=== PATIENT | male | born 1950 | race Caucasian/White ===

== ENCOUNTER 2017-05-12 14:46 | Emergency (ER) | payer OTHER, MEDICAID ==
[~2017-05-12] VITALS: Wt 83.5 kg
[~2017-05-12 14:46] MED LIST: ACET500T98; AMLO5TAB4 PO; ASPI-664 PO; BENA20TA65 PO; CARV6.2545 PO; DICL75 PO; GABA100C14 PO; GEMF600T PO; IBUP-40; INSU100V19; METF1000 PO
[2017-05-12] MEDS ORDERED: ACETAMINOPHEN 325 MG TAB PO ONE (16:00)
[2017-05-12 16:29] LABS: ADD UMIC YES; UR ASCORBIC ACID NEGATIVE (NEGATIVE); UR BILIRUBIN (Dip) NEGATIVE (NEGATIVE); UR BLOOD (Dip) NEGATIVE (NEGATIVE); UR CLARITY CLEAR (CLEAR); UR COLOR YELLOW (YELLOW); UR GLUCOSE (Dip) 3+ mg/dL (NEGATIVE); UR KETONES (Dip) NEGATIVE (NEGATIVE); UR LEUKOCYTE ESTERASE (Dip) NEGATIVE Leu/ul (NEGATIVE); UR NITRITE (Dip) NEGATIVE (NEGATIVE); UR RBC 1 /HPF (0-5); UR SPECIFIC GRAVITY (Dip) 1.029 (1.003-1.030); UR TOTAL PROTEIN (Dip) 3+ mg/dl (NEGATIVE); UR UROBILINOGEN (Dip) NEGATIVE (NEGATIVE)
--- NOTE | 2017-05-12 17:24 | RADRPT ---
PROCEDURE: Noncontrast CT Head. CLINICAL INDICATION: Status post fall. Trauma. TECHNIQUE: Noncontrast CT of the head was obtained. The administered radiation dose was CTDI vol = 43.58 mGy, DLP = 720.23 mGy-cm. One or more of the following dose reduction techniques were used: Au tomated exposure control, Adjustment of the mA and/or kV according to patient size, or Use of iterat naresh reconstruction technique. COMPARISON: There are no similar studies submitted for comparison. FINDINGS: There is a right frontal craniectomy with right frontal ventriculostomy catheter with tip within the left frontal horn. There is mild ventriculomegaly suggesting miles central greater than peripheral cerebral volume loss . There is extensive bilateral superior temporal subcortical gliosis. There is no loss of amor-white differentiation to suggest acute territorial infarction. There is no acute intracranial hemorrhage. There is no mass effect. No midline shift is identified. The orbits are within normal limits. The paranasal sinuses are well aerated. No destructive osseous lesion is identified. Is a left frontal analisa hole. IMPRESSION: 1. No acute intracranial hemorrhage. 2. Right frontal craniectomy with right frontal ventriculostomy catheter. 3. Mild ventriculomegaly suggesting central greater than peripheral cerebral volume loss. Comparison with prior examination may be helpful to evaluate ventricle size. 4. Extensive bilateral frontal subcortical hypoattenuation which may be related to gliosis versus o ther etiologies. Further findings as detailed above. RPTAT: PP .Slick Da Silva MD, Date Time Electronically viewed and signed by .Slick Da Silva MD, on 05/12/2017 17:23 .F/
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
--- NOTE | 2017-05-12 17:30 | RADRPT ---
PROCEDURE: XR bilateral knees. CLINICAL INDICATION: 66 years of age, male.bilateral knee pain. TECHNIQUE: Six views of the bilateral knees. COMPARISON: None available FINDINGS: RIGHT KNEE: Negative for evidence of acute fracture. Normal alignment. Mild tricompartment osteoarthritis with small osteophytes. Small amount of knee joint fluid. Negative for significant soft tissue swellin g. LEFT KNEE: Negative for evidence of acute fracture. Normal alignment. Mild tricompartment osteoarthritis with small osteophytes. Small amount of knee joint fluid . Negative for significant soft tissue swellin g. IMPRESSION: Negative for evidence of acute fracture or dislocation of the bilateral knees. Mild bilateral tricompartment osteoarthritis. RPTAT: HCTS Physician Patricia Date Time Electronically viewed and signed by Connor Diana Physician on 05/12/2017 17:30 /
[2017-05-12] MEDS ORDERED: ACET1TAB40 PO (18:11)
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
[2017-05-12 18:30] VITALS: BP 168/83; PULSE 78; RESP 20; TEMP 98.1
== END 2017-05-12 18:30 | disposition home or self-care (01) ==
LOC: FTE 14:46
DX: S80.01XA Contusion of right knee, initial encounter (principal); S20.219A Contusion of unspecified front wall of thorax, initial encounter; S80.02XA Contusion of left knee, initial encounter; I10 Essential (primary) hypertension; E11.9 Type 2 diabetes mellitus without complications; W01.0XXA Fall on same level from slipping, tripping and stumbling without subsequent striking against object, initial encounter; Y92.9 Unspecified place or not applicable; Z79.4 Long term (current) use of insulin; Z79.84 Long term (current) use of oral hypoglycemic drugs; Z79.82 Long term (current) use of aspirin
CPT/HCPCS: 70450; 71010; 81001; 82962; 93005

== ENCOUNTER 2017-05-17 00:49 | Inpatient (IN) | payer OTHER, MEDICAID ==
[~2017-05-17] VITALS: Ht 172.7 cm; Wt 81.5 kg
[~2017-05-17 00:49] MED LIST changes: +ACET1TAB40 PO
[2017-05-17] MEDS ORDERED: SODIUM CHLORIDE 0.9% 1L BAG IV* STA (01:08)
[2017-05-17] MEDS ORDERED: CEFEPIME 2GM/50 ML (PMX) 50 ML IVPB STA (01:08)
[2017-05-17] MEDS ORDERED: ACETAMINOPHEN 650 MG SUPP PR STA (01:08)
[2017-05-17] MEDS ORDERED: VANCOMYCIN 1 GM (PMX) 250 ML IVPB ONE (01:30)
[2017-05-17 01:43] LABS: BASOPHILS % 0.2 % (0.0-2.0); EOSINOPHILS % 0.1 % (0.0-7.0); HEMATOCRIT 34.3 % (42.0-52.0); HEMOGLOBIN 11.6 g/dl (14.0-18.0); LYMPHOCYTES % 19.4 % (15.0-51.0); MEAN CORPUSCULAR HEMOGLOBIN 29.7 pg (29.0-33.0); MEAN CORPUSCULAR HGB CONC 33.8 g/dl (32.0-37.0); MEAN CORPUSCULAR VOLUME 87.9 fl (82.0-101.0); MEAN PLATELET VOLUME 9.9 fl (7.4-10.4); MONOCYTE # 0.6 10^3/ul (0.3-0.9); MONOCYTES % 5.6 % (0.0-11.0); NEUTROPHILS % 74.4 % (39.0-77.0); PLATELET COUNT 319 10^3/UL (140-415); RED CELL DISTRIBUTION WIDTH 12.7 % (11.5-14.5); WHITE BLOOD COUNT 10.1 10^3/ul (4.8-10.8)
[2017-05-17 01:59] LABS: INR 0.93; PROTIME 12.5 Sec (12.2-14.2)
[2017-05-17 02:00] LABS: PARTIAL THROMBOPLASTIN TIME 26.4 Sec (25.0-35.0)
--- NOTE | 2017-05-17 02:02 | RADRPT ---
PROCEDURE: CT BRAIN WITHOUT CONTRAST CLINICAL INDICATION: 66-year-old male with change in mental status and sepsis. TECHNIQUE: The study was performed utilizing [employer] VCT 64-slice CT scanner. Direct axial sections were obtained from the foramen magnum to the vertex without the use of intravenous contrast material. Sagittal and coronal reformations were obtained. One or more of the following dose reduc tion techniques were utilized: automated exposure control, adjustment of the mA and/or kV according to patient's size or use of iterative reconstruction technique. The images were viewed on a PACS w orkstation. CTD/vol = 45.0 mGy; Total Exam DLP = 720.2 mGy-cm. COMPARISON: CT brain May 12, 2017. FINDINGS: There has been a right frontal craniectomy. There is a small left frontal parasagittal analisa hole. T here is a right transfrontal ventriculoperitoneal shunt with the catheter traversing the frontal hor ns and the tip in the left frontal horn of the lateral ventricle. There is moderate prominence of th e sulci and cisternal spaces consistent with diffuse volume loss and compensatory ventricular enlarg ement. The ventricular configuration however is without significant interval change. There is bifr ontal encephalomalacia again visualized. There are is periventricular decreased density suggestive of microangiopathic ischemic changes but without significant interval change. Vascular calcificatio ns are seen within the intracranial carotid arteries bilaterally. There is no evidence for acute in tra or extra-axial blood. There is a deformity within the right nasal bone from a prior fracture. T here is mild mucosal thickening within the ethmoid air cells bilaterally. No air-fluid levels are noted. The mastoid air cells are without significant soft tissue. IMPRESSION: 1. The intracranial contents are without significant interval change compared to the patient's prio r CT scan from May 12, 2017. 2. Right frontal craniectomy with left frontal parasagittal analisa hole. 3. Right transfrontal ventriculoperitoneal shunt with the catheter traversing the frontal horns. 4. Moderate diffuse volume loss. 5. Bifrontal encephalomalacia presumably from prior trauma. 6. Microangiopathic ischemic changes. 7. Vascular calcifications. 8. Mild mucosal thickening ethmoid air cells. .Moises Conner MD, MD Date Time Electronically viewed and signed by .Moises Conner MD, on 05/17/2017 02:01 .M/
[2017-05-17 02:04] LABS: ALANINE AMINOTRANSFERASE 32 IU/L (13-69); ALBUMIN 3.3 g/dl (3.3-4.9); ALBUMIN/GLOBULIN RATIO 0.82; ALKALINE PHOSPHATASE 135 IU/L (42-121); ANION GAP 16 (8-16); ASPARTATE AMINO TRANSFERASE 18 IU/L (15-46); BILIRUBIN,INDIRECT 0.6 mg/dl (0-1.1); BILIRUBIN,TOTAL 0.6 mg/dl (0.2-1.3); BLOOD UREA NITROGEN 17 mg/dl (7-20); CALCIUM 8.9 mg/dl (8.4-10.2); CARBON DIOXIDE 21 mmol/L (21-31); CHLORIDE 104 mmol/L (97-110); CREATININE 1.31 mg/dl (0.61-1.24); GLUCOSE 377 mg/dl (70-220); POTASSIUM 4.4 mmol/L (3.5-5.1); SODIUM 137 mmol/L (135-144); TOTAL PROTEIN 7.3 g/dl (6.1-8.1)
--- NOTE | 2017-05-17 02:07 | RADRPT ---
PROCEDURE: CHEST - 1 VIEW CLINICAL INDICATION: 66-year-old male with shortness of breath and sepsis. TECHNIQUE: A single frontal AP semi-erect portable view of the chest was performed. The images we re reviewed on a PACS workstation. COMPARISON: Chest x-ray May 12, 2017. FINDINGS: Ventriculoperitoneal shunt tubing is seen along the right neck crossing the midline and extending al kim the left side of the chest with the tip difficult to visualize but appears to be at the level of the diaphragm. The cardiomediastinal silhouette it is mildly enlarged but without significant inter amaury change. The thoracic aorta is mildly calcified and ectatic. There are small speckled metallic foreign bodies within the left upper lung zone most suggestive of shrapnel. There are an anastomoti c caro within the left upper lung zone from prior lung resection. There is volume loss within th e left chest. There is increasing left lower lung zone atelectasis. A superimposed infiltrate nate ot be excluded. There is no evidence for congestive heart failure. There is no evidence for pneumot horax. IMPRESSION: 1. Ventriculoperitoneal shunt tubing with the tip of the tubing difficult to visualize but appears to be along the level of the diaphragm. This however is without significant interval change. 2. Shrapnel within the left upper lung zone with prior lung resection. 3. Increasing left lung volume loss with left lower lung zone atelectasis. A superimposed infiltra te cannot be excluded. .Moises Conner MD, Date Time Electronically viewed and signed by .Moises Conner MD, MD on 05/17/2017 02:06 .Brett/
[2017-05-17 02:21] LABS: TROPONIN-I < 0.012 ng/ml (0.00-0.12)
[2017-05-17] MEDS ORDERED: LABETALOL HCL 20MG INJ IV ONE (03:00)
[2017-05-17 04:27] VITALS: TEMP 100.7
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
[2017-05-17] MEDS ORDERED: ONDANSETRON 4 MG INJ IV PRN (04:30)
[2017-05-17] MEDS ORDERED: ACETAMINOPHEN 325 MG TAB PO PRN (04:30)
[2017-05-17] MEDS ORDERED: SOD CHLORIDE 0.9% 1,000 ML IV SCH (04:44)
[2017-05-17] MEDS ORDERED: INSULIN ASPART [NOVOLOG] 3 ML PEN SC STA (04:54)
[2017-05-17] MEDS ORDERED: DOCUSATE SODIUM 100 MG CAP PO PRN (05:00)
[2017-05-17] MEDS ORDERED: ONDANSETRON 4 MG TAB PO PRN (05:00)
[2017-05-17] MEDS ORDERED: NACL 0.9% 3 ML SYG IV SCH (05:00)
[2017-05-17 05:21] LABS: ADD UMIC YES; UR ASCORBIC ACID NEGATIVE (NEGATIVE); UR BILIRUBIN (Dip) NEGATIVE (NEGATIVE); UR BLOOD (Dip) NEGATIVE (NEGATIVE); UR CLARITY CLEAR (CLEAR); UR COLOR YELLOW (YELLOW); UR GLUCOSE (Dip) 3+ mg/dL (NEGATIVE); UR KETONES (Dip) TRACE mg/dL (NEGATIVE); UR LEUKOCYTE ESTERASE (Dip) NEGATIVE Leu/ul (NEGATIVE); UR NITRITE (Dip) NEGATIVE (NEGATIVE); UR RBC 1 /HPF (0-5); UR SPECIFIC GRAVITY (Dip) 1.018 (1.003-1.030); UR TOTAL PROTEIN (Dip) 3+ mg/dl (NEGATIVE); UR UROBILINOGEN (Dip) NEGATIVE (NEGATIVE)
[2017-05-17 05:29] VITALS: BP 181/86; RESP 19
[2017-05-17] MEDS ORDERED: PIPER-TAZO 3.375 GM IV (PMX) 100 ML IVPB SCH (06:28)
[2017-05-17] MEDS ORDERED: VANCOMYCIN IV PER PHARMACY XX SCH ×2 (06:30→15:00)
[2017-05-17 06:57] VITALS: Ht 172.7 cm; Wt 81.5 kg
[2017-05-17 07:22] VITALS: BP 189/88; RESP 18
[2017-05-17] MEDS ORDERED: INSULIN GLARGINE [LANtus] 3 ML PEN SC SCH ×2 (07:30→21:00)
[2017-05-17] MEDS: hydrALAzine 20 MG INJ IV PRN ×2 (07:35→12:18)
[2017-05-17] MEDS: BENAZEPRIL 20 MG TAB PO SCH ×2 (08:16→21:04)
[2017-05-17] MEDS: GEMFIBROZIL 600 MG TAB PO SCH ×2 (08:16→21:03)
[2017-05-17] MEDS: GABAPENTIN 400 MG CAP PO SCH ×3 (08:16→21:04)
[2017-05-17] MEDS: ASPIRIN (EC) 81 MG TAB PO SCH (08:16)
[2017-05-17] MEDS: FAMOTIDINE 20 MG TAB PO SCH ×2 (08:17→21:03)
[2017-05-17] MEDS ORDERED: AMLODIPINE 5 MG TAB PO SCH (09:00)
[2017-05-17] MEDS ORDERED: ENOXAPARIN 30 MG/0.3 ML SYG SC SCH (09:00)
[2017-05-17 09:59] LABS: CREATINE KINASE 50 IU/L (23-200)
[2017-05-17 10:28] LABS: TROPONIN-I < 0.012 ng/ml (0.00-0.12)
[2017-05-17 11:08] LABS: CK-MB 0.64 ng/ml (0.0-2.4)
[2017-05-17] MEDS: TAMSULOSIN (SR) 0.4 MG CAP PO SCH ×2 (12:18→21:03)
[2017-05-17 13:53] VITALS: BP 168/79; RESP 18
[2017-05-17 14:37] LABS: CREATINE KINASE 88 IU/L (23-200)
[2017-05-17 14:52] LABS: CK-MB 0.97 ng/ml (0.0-2.4); TROPONIN-I < 0.012 ng/ml (0.00-0.12)
[2017-05-17] MEDS ORDERED: BARIUM SULF 2% 450 ML BTL (BERRY SMOOTHIE) PO ONE (15:00)
[2017-05-17] MEDS ORDERED: ACETAMINOPHEN 650 MG SUPP PR PRN (15:30)
[2017-05-17] MEDS: ACETAMINOPHEN 325 MG TAB PO PRN ×2 (16:00→22:25)
[2017-05-17] MEDS ORDERED: GLUCOSE GEL 15 GRAM TUBE PO PRN ×2 (16:30)
[2017-05-17] MEDS ORDERED: DEXTROSE 50% 50 ML SYRINGE IV PRN ×2 (16:30)
[2017-05-17] MEDS ORDERED: GLUCAGON 1 MG INJ IM PRN (16:30)
[2017-05-17] MEDS ORDERED: GLUCOSE GEL 15 GRAM TUBE BUCCAL PRN (16:30)
[2017-05-17] MEDS ORDERED: VANCOMYCIN 1.5 GM in SOD CHLORIDE 0.9% 250 ML IVPB SCH (17:00)
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
[2017-05-17] MEDS: CEFTRIAXONE 2 GM/50 ML (PMX) 50 ML IVPB SCH (17:23)
[2017-05-17] MEDS: SOD CHLORIDE 0.9% 1,000 ML IV SCH (17:28)
[2017-05-17] MEDS: INSULIN ASPART [NOVOLOG] 3 ML PEN SC SCH ×3 (17:40→21:00)
[2017-05-17 20:36] VITALS: BP 140/80; RESP 20
[2017-05-17] MEDS: INSULIN GLARGINE [LANtus] 3 ML PEN SC SCH (21:00)
[2017-05-17] MEDS: AMLODIPINE 5 MG TAB PO SCH (22:26)
[2017-05-17 22:31] VITALS: BP 128/64
[2017-05-18] VITALS (8 sets, daily range): BP systolic 114–163; BP diastolic 60–76; PULSE 74–82; RESP 18–20
[2017-05-18] MEDS: ACCU-CHEK XX SCH (02:00)
[2017-05-18] MEDS: SOD CHLORIDE 0.9% 1,000 ML IV SCH ×2 (02:49→11:30)
[2017-05-18 05:53] LABS: BASOPHIL # 0.1 10^3/ul (0.0-0.1); BASOPHILS % 0.4 % (0.0-2.0); EOSINOPHILS % 0.3 % (0.0-7.0); HEMATOCRIT 30.3 % (42.0-52.0); HEMOGLOBIN 10.2 g/dl (14.0-18.0); LYMPHOCYTES # 2.4 10^3/ul (0.8-2.9); LYMPHOCYTES % 21.7 % (15.0-51.0); MEAN CORPUSCULAR HEMOGLOBIN 30.1 pg (29.0-33.0); MEAN CORPUSCULAR HGB CONC 33.7 g/dl (32.0-37.0); MEAN CORPUSCULAR VOLUME 89.4 fl (82.0-101.0); MEAN PLATELET VOLUME 9.8 fl (7.4-10.4); MONOCYTES % 9.1 % (0.0-11.0); NEUTROPHILS % 68.1 % (39.0-77.0); PLATELET COUNT 296 10^3/UL (140-415); RED BLOOD COUNT 3.39 10^6/ul (4.70-6.10); RED CELL DISTRIBUTION WIDTH 12.8 % (11.5-14.5); WHITE BLOOD COUNT 11.2 10^3/ul (4.8-10.8)
[2017-05-18 06:30] LABS: CREATININE 1.15 mg/dl (0.61-1.24); MAGNESIUM 1.6 mg/dl (1.7-2.5); POTASSIUM 4.2 mmol/L (3.5-5.1)
[2017-05-18] MEDS: ACETAMINOPHEN 325 MG TAB PO PRN ×3 (07:45→20:36)
[2017-05-18] MEDS: INSULIN ASPART [NOVOLOG] 3 ML PEN SC SCH ×7 (08:01→21:00)
[2017-05-18] MEDS: BENAZEPRIL 20 MG TAB PO SCH ×2 (09:29→20:31)
[2017-05-18] MEDS: GABAPENTIN 400 MG CAP PO SCH ×3 (09:30→20:31)
[2017-05-18] MEDS: ASPIRIN (EC) 81 MG TAB PO SCH (09:30)
[2017-05-18] MEDS: GEMFIBROZIL 600 MG TAB PO SCH ×2 (09:30→20:30)
[2017-05-18] MEDS: FAMOTIDINE 20 MG TAB PO SCH ×2 (09:30→20:31)
[2017-05-18] MEDS: TAMSULOSIN (SR) 0.4 MG CAP PO SCH ×2 (09:30→20:30)
[2017-05-18] MEDS: AMLODIPINE 5 MG TAB PO SCH ×2 (10:51→20:31)
[2017-05-18] MEDS ORDERED: VANCOMYCIN 750 MG in SOD CHLORIDE 0.9% 150 ML IVPB SCH (11:30)
[2017-05-18] MEDS ORDERED: MAGNESIUM SULFATE 2 GM/50 ML 50 ML IVPB ONE (12:00)
--- NOTE | 2017-05-18 13:17 | PN ---
Date/Time of Note Date/Time of Note DATE: 05/18/17 TIME: 12:47 Assessment/Plan VTE Prophylaxis VTE Prophylaxis Intervention: SCD's Lines/Catheters IV [facility]ter Type (from [facility]): Peripheral IV Urinary Cath still in place: No Assessment/Plan Assessment/Plan 66-year-old male with: 1. Fevers, chills, slightly elevated lactic acid last night. Blood cultures which have been repeated again this afternoon given the episode of fever still pending. Urine culture pending. UA was negative mostly. Lactic acid trending down. Repeat UA and urine culture pending Patient on Road spectrum antibiotics vancomycin and Rocephin CAT scan of the abdomen and pelvis done overnight, FLOOR FRAMER shunt in the right upper quadrant and adequate position, no other acute findings, patient was found to have a distended stomach at the time of the CAT scan but relieved now clinically. I have discussed the case with Dr. Rubén Knox from neurosurgery, he doubts the FLOOR FRAMER shunt is infected, he is recommending to complete infectious workup and we may need to do a lumbar puncture. Follow-up on cultures. 2. Episode of urinary retention, seems to be chronic at this point, patient on Flomax as an outpatient. Resolved as of this morning, patient on twice daily Flomax. Follow up repeat UA and urine culture 3. Remote head injury with obstructive hydrocephalus, status post FLOOR FRAMER shunt years ago, family reports that the patient had issues with the FLOOR FRAMER shunt being dislodged in the abdomen in the past. He did have a recent fall with trauma to the abdomen, CAT scan of the abdomen and pelvis showing adequate position of the FLOOR FRAMER shunt tip in the right upper quadrant. Otherwise CAT scan of the head is stable. Per Dr. Knox, patient to get [facility], but unlikely having FLOOR FRAMER shunt dysfunction currently. He is not also advising to tap the FLOOR FRAMER shunt at this point. MRI cervical/thoracic/lumbar spine pending 4. Diabetes mellitus, uncontrolled, hemoglobin A1c around 11. Patient is on insulin regimen while inpatient. Diabetic education prior to discharge. Diabetic diet, sliding scale insulin also on board. 5. Hypertension: Continue home medications, hydralazine as needed. Prophylaxis: SCDs for DVT prophylaxis, Pepcid for GI prophylaxis. Disposition: Follow-up on cultures, antibiotic treatment, MRI spine pending, follow-up further neurosurgical commendation once MRIs done. Subjective 24 Hr Interval Summary Free Text/Dictation Mr. Hood does look better this morning, CAT scan of the abdomen and pelvis overnight did show a distended stomach but this morning he is symptomatically much improved, no nausea no vomiting. Tolerating clear liquid diet. Appreciate neurosurgery evaluation and recommendation, MRI cervical/thoracic/ lumbar spine pending Still febrile up to 103. Cultures no growth to date On IV broad-spectrum antibiotics. Exam/Review of Systems Vital Signs Vitals Vital Signs Date Time Temp Pulse Resp B/P Pulse Ox O2 Delivery O2 Flow Rate FiO2 05/18/17 12:35 99.9 05/18/17 10:44 74 156/72 05/18/17 10:39 18 94 05/17/17 04:27 Room Air Intake and Output 05/17/17 05/17/17 05/18/17 15:00 23:00 07:00 Intake Total 500 ml 1740 ml 1450 ml Output Total 600 ml Balance 500 ml 1740 ml 850 ml Exam Constitutional: alert, oriented (x2), well developed Respiratory: clear to auscultation, normal air movement Cardiovascular: nl pulses, regular rate and rhythm Gastrointestinal: non-tender, soft Musculoskeletal: nl extremities to inspection Extremities: normal pulses, other (No edema, clubbing or cyanosis) Neurological: SENIOR SCIENTIST II-XII intact, confused, lethargic, nl speech, other ( Generalized weakness) Results Result Diagram: 05/18/17 0506 05/18/17 0506 Results 24 hrs Laboratory Tests Test 05/17/17 13:01 05/17/17 16:10 05/17/17 17:31 05/17/17 20:56 Lactic Acid Level 2.1 H Creatine Kinase 88 Creatine Kinase Index 1.1 Creatinine Kinase MB (Mass) 0.97 Troponin I < 0.012 Hemoglobin A1c 11.8 H Bedside Glucose 247 H 114 Test 05/18/17 02:55 05/18/17 05:06 05/18/17 07:51 05/18/17 12:27 Bedside Glucose 108 153 135 White Blood Count 11.2 H Red Blood Count 3.39 L Hemoglobin 10.2 L Hematocrit 30.3 L Mean Corpuscular Volume 89.4 Mean Corpuscular Hemoglobin 30.1 Mean Corpuscular Hemoglobin Concent 33.7 Red Cell Distribution Width 12.8 Platelet Count 296 Mean Platelet Volume 9.8 Neutrophils % 68.1 Lymphocytes % 21.7 Monocytes % 9.1 Eosinophils % 0.3 Basophils % 0.4 Nucleated Red Blood Cells % 0.0 Neutrophils # (Manual) 7.6 H Lymphocytes # 2.4 Monocytes # 1.0 H Eosinophils # 0.0 Basophils # 0.1 Nucleated Red Blood Cells # 0.0 Sodium Level 137 Potassium Level 4.2 Chloride Level 104 Carbon Dioxide Level 21 Anion Gap 16 Blood Urea Nitrogen 14 Creatinine 1.15 Glucose Level 125 # Calcium Level 8.0 L Phosphorus Level 3.9 Magnesium Level 1.6 L Thyroid Stimulating Hormone (TSH) 0.815 Medications Medications Current Medications Ondansetron HCl (Zofran Tab) 4 mg Q6H PRN PO NAUSEA AND/OR VOMITING; Start at 05:00 Acetaminophen (Tylenol Tab) 650 mg Q6H PRN PO PAIN LEVEL 1-3 OR FEVER Last administered on 05/18/17 07:45; Admin Dose 650 MG; Start 05/17/17 at 05:00 Acetaminophen/ Hydrocodone Bitart ([place] (5/325)) 1 tab Q6H PRN PO MODERATE PAIN LEVEL 4-6; Start 05/17/17 at 05:00 Docusate Sodium (Colace) 100 mg Q12H PRN PO CONSTIPATION; Start 05/17/17 at 05: 00 Famotidine (Pepcid) 20 mg Q12 PO Last administered on 05/18/17 09:30; Admin Dose 20 MG; Start 05/17/17 at 09:00 Aspirin (Halfprin) 81 mg DAILY PO Last administered on 05/18/17 09:30; Admin Dose 81 MG; Start 05/17/17 at 09:00 Benazepril HCl (Lotensin) 20 mg BID PO Last administered on 05/18/17 09:29; Admin Dose 20 MG; Start 05/17/17 at 09:00 Carvedilol (Coreg) 6.25 mg BID PO Last administered on 05/18/17 09:31; Admin Dose 6.25 MG; Start 05/17/17 at 09:00 Gabapentin (Neurontin) 800 mg TID PO Last administered on 05/18/17 12:29; Admin Dose 800 MG; Start 05/17/17 at 09:00 Gemfibrozil (Lopid) 600 mg BID PO Last administered on 05/18/17 09:30; Admin Dose 600 MG; Start 05/17/17 at 09:00 Hydralazine HCl (Apresoline) 10 mg Q4H PRN IV SBP > 160 Last administered on 12:18; Admin Dose 10 MG; Start 05/17/17 at 06:30 Tamsulosin HCl (Flomax) 0.4 mg BID PO Last administered on 05/18/17 09:30; Admin Dose 0.4 MG; Start 05/17/17 at 12:00 Insulin Glargine 20 unit 20 unit QHS SC ; Start 05/17/17 at 21:00 Ceftriaxone Sodium (Rocephin) 50 ml @ 100 mls/hr Q24H IVPB Last administered on 05/17/17 17:23; Admin Dose 100 MLS/HR; Start 05/17/17 at 15:00 Diagnostic Test (Pha) 1 ea 1 ea 02 XX ; Start 05/18/17 at 02:00 Sodium Chloride (NS) 1,000 ml @ 100 mls/hr Q10H IV Last administered on 02:49; Admin Dose 100 MLS/HR; Start 05/17/17 at 15:30 Acetaminophen (Tylenol Supp) 650 mg Q6 PRN [place] PAIN OR TEMP ABOVE 38C; Start at 15:30 Miscellaneous Information 1 ea NOTE XX ; Start 05/17/17 at 16:30 Glucose (Glutose) 15 gm Q15M PRN PO DECREASED GLUCOSE; Start 05/17/17 at 16:30 Glucose (Glutose) 22.5 gm Q15M PRN PO DECREASED GLUCOSE; Start 05/17/17 at 16: 30 Dextrose (D50w Syringe) 25 ml Q15M PRN IV DECREASED GLUCOSE; Start 05/17/17 at 16:30 Dextrose (D50w Syringe) 50 ml Q15M PRN IV DECREASED GLUCOSE; Start 05/17/17 at 16:30 Glucagon (Glucagen) 1 mg Q15M PRN IM DECREASED GLUCOSE; Start 05/17/17 at 16:30 Glucose (Glutose) 15 gm Q15M PRN BUCCAL DECREASED GLUCOSE; Start 05/17/17 at 16 :30 Amlodipine Besylate 5 mg 5 mg BID PO Last administered on 05/18/17 10:51; Admin Dose 5 MG; Start 05/17/17 at 21:00 Magnesium Sulfate 50 ml @ 25 mls/hr ONCE ONCE IVPB Last administered on t 11:35; Admin Dose 25 MLS/HR; Start 05/18/17 at 12:00; Stop 05/18/17 at 13: 59 Vancomycin HCl/ Sodium Chloride (Vancocin/NS) 150 ml @ 75 mls/hr Q12H IVPB ; Start 05/18/17 at 11:30 AUGUST ADAN May 18, 2017 12:57
--- NOTE | 2017-05-18 13:18 | RADRPT ---
PROCEDURE: CT Abdomen and Pelvis without contrast. CLINICAL INDICATION: Abdominal pelvic pain. Nausea and vomiting. TECHNIQUE: CT scan of the abdomen and pelvis without contrast was performed on a multidetector hig h-resolution CT scanner. The patient was scanned without intravenous contrast. Coronal and sagittal reformatted images were obtained from the axial source images. Images were reviewed on a high-resol [email or web address] PACS workstation. The total exam CTDI equals 13.82 mGy and the total exam DLP equals 961.11 mG y-cm. One or more of the following dose reduction techniques were used: - Automated exposure control. - Adjustment of the mA and/or kV according to patient size. - Use of iterative reconstruction technique. COMPARISON: Chest x-ray 05/17/2017 FINDINGS: CT abdomen: The lung bases are remarkable for scarring and atelectasis in the posteromedial juxtapleural margins of the lungs bilaterally. The heart size is normal, without pericardial thickening or effusion. V P shunt is seen traversing along the midline anterior chest wall extending down into the right later al mid abdomen. The liver is normal in size and density without focal mass or intrahepatic biliary dilatation. The spleen is normal in size and homogeneous in density. Punctate calcifications are seen within the sp kermit, typical of old granulomatous disease. The stomach is markedly distended and filled with fluid and ingested material. Partial gastric outlet obstruction is not excluded. The pancreas as visual ized is normal. The gallbladder is remarkable for small calcified gallstones; the biliary tree is u nremarkable and there is no evidence for biliary dilatation. The adrenal glands are symmetric and n ormal. The kidneys are symmetrically unremarkable as well. No renal calculus or obstructive uropat hy or mass lesion is seen. Mild perinephric stranding and edema is identified bilaterally, nonspecif ic and presumably benign and senescent in nature. The aorta is of normal caliber. Aortic vascular calcifications are present. There is no retroperit curiel lymphadenopathy. The mel hepatis region is clear. The bowel and mesentery, as visualized, are equally unremarkable. CT pelvis: The small bowel loops situated within the pelvis are unremarkable. The appendix is visualized and is normal. The bladder is distended, but otherwise grossly unremarkable The pelvic organs are remarkab le for abnormal enlargement of the prostate gland which is impressing upon the base of the bladder. The pelvic sidewalls and inguinal regions are clear. Small fat-containing right inguinal hernia is seen. No bowel herniation is identified. The sigmoid colon and rectum are unremarkable. No mass or adenopathy is seen. No free fluid is present. No acute inflammation is identified at this time. Benign phleboliths are seen within the lower pelvis. The surrounding osseous structures are remarkable for advanced severe multilevel degenerative enthes opathy of the spine. No osteolytic or osteoblastic lesion is detected. Partial wedge compression of the L1 vertebral body is seen, chronic and remote in age. Severe discogenic disease and disk space narrowing at the L5-S1 level is identified. IMPRESSION: 1. No evidence for bowel distension or bowel obstruction. 2. Benign senescent perinephric stranding and edema. 3. Scattered diffuse benign chronic senescent changes. 4. KARDEX CLERK shunt in place, in good location. 5. Enlarged prostate gland. Correlate with PSA level. 6. Cholelithiasis, without evidence for acute cholecystitis. 7. No focal acute inflammatory process is present. RPTAT: HMJB .Donald Cole MD, MD Date Time Electronically viewed and signed by .Donald Cole MD, on 05/18/2017 13:18 .B/
[2017-05-18] MEDS: hydrALAzine 20 MG INJ IV PRN (13:34)
[2017-05-18] MEDS: VANCOMYCIN 750 MG in SOD CHLORIDE 0.9% 150 ML IVPB SCH (13:45)
[2017-05-18] MEDS: CEFTRIAXONE 2 GM/50 ML (PMX) 50 ML IVPB SCH (16:47)
[2017-05-18 17:12] LABS: ADD UMIC YES; UR ASCORBIC ACID NEGATIVE (NEGATIVE); UR BILIRUBIN (Dip) NEGATIVE (NEGATIVE); UR BLOOD (Dip) NEGATIVE (NEGATIVE); UR CLARITY CLEAR (CLEAR); UR COLOR YELLOW (YELLOW); UR GLUCOSE (Dip) 2+ mg/dL (NEGATIVE); UR KETONES (Dip) NEGATIVE (NEGATIVE); UR LEUKOCYTE ESTERASE (Dip) NEGATIVE Leu/ul (NEGATIVE); UR NITRITE (Dip) NEGATIVE (NEGATIVE); UR RBC 1 /HPF (0-5); UR TOTAL PROTEIN (Dip) 3+ mg/dl (NEGATIVE); UR UROBILINOGEN (Dip) NEGATIVE (NEGATIVE)
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
[2017-05-18] MEDS: INSULIN GLARGINE [LANtus] 3 ML PEN SC SCH (22:39)
[2017-05-19] MEDS: SOD CHLORIDE 0.9% 1,000 ML IV SCH ×3 (01:00→16:46)
[2017-05-19] MEDS: VANCOMYCIN 750 MG in SOD CHLORIDE 0.9% 150 ML IVPB SCH ×2 (01:46→14:48)
[2017-05-19] MEDS: ACCU-CHEK XX SCH (01:56)
[2017-05-19 02:01] VITALS: BP 134/72; RESP 20
[2017-05-19 06:35] LABS: BASOPHIL # 0.1 10^3/ul (0.0-0.1); BASOPHILS % 0.6 % (0.0-2.0); EOSINOPHILS % 0.4 % (0.0-7.0); HEMATOCRIT 30.1 % (42.0-52.0); HEMOGLOBIN 10.4 g/dl (14.0-18.0); LYMPHOCYTES # 2.1 10^3/ul (0.8-2.9); LYMPHOCYTES % 19.1 % (15.0-51.0); MEAN CORPUSCULAR HEMOGLOBIN 30.1 pg (29.0-33.0); MEAN CORPUSCULAR HGB CONC 34.6 g/dl (32.0-37.0); MEAN PLATELET VOLUME 9.9 fl (7.4-10.4); MONOCYTE # 0.9 10^3/ul (0.3-0.9); MONOCYTES % 7.9 % (0.0-11.0); NEUTROPHILS % 71.6 % (39.0-77.0); PLATELET COUNT 307 10^3/UL (140-415); RED BLOOD COUNT 3.46 10^6/ul (4.70-6.10); RED CELL DISTRIBUTION WIDTH 12.2 % (11.5-14.5); WHITE BLOOD COUNT 10.8 10^3/ul (4.8-10.8)
[2017-05-19 07:03] LABS: MAGNESIUM 1.9 mg/dl (1.7-2.5); PHOSPHORUS 3.7 mg/dl (2.5-4.9)
[2017-05-19 07:13] LABS: ALBUMIN/GLOBULIN RATIO 0.76
[2017-05-19 07:41] VITALS: BP 159/74; RESP 18
[2017-05-19 07:44] LABS: ALBUMIN 2.6 g/dl (3.3-4.9); BILIRUBIN,INDIRECT 0.5 mg/dl (0-1.1); BILIRUBIN,TOTAL 0.5 mg/dl (0.2-1.3); CREATININE 0.95 mg/dl (0.61-1.24); POTASSIUM 3.8 mmol/L (3.5-5.1)
[2017-05-19] MEDS: INSULIN ASPART [NOVOLOG] 3 ML PEN SC SCH ×7 (08:15→20:37)
[2017-05-19] MEDS: ASPIRIN (EC) 81 MG TAB PO SCH (08:17)
[2017-05-19] MEDS: GABAPENTIN 400 MG CAP PO SCH ×3 (08:17→20:30)
[2017-05-19] MEDS: TAMSULOSIN (SR) 0.4 MG CAP PO SCH ×2 (08:17→20:30)
[2017-05-19] MEDS: GEMFIBROZIL 600 MG TAB PO SCH ×2 (08:17→20:31)
[2017-05-19] MEDS: FAMOTIDINE 20 MG TAB PO SCH ×2 (08:18→20:31)
[2017-05-19] MEDS: AMLODIPINE 5 MG TAB PO SCH ×2 (08:18→20:32)
[2017-05-19] MEDS: BENAZEPRIL 20 MG TAB PO SCH ×2 (08:18→20:31)
--- NOTE | 2017-05-19 11:39 | RADRPT ---
PROCEDURE: XR Skull. CLINICAL INDICATION: Trauma. Headache. TECHNIQUE: 2 views. Frontal and lateral. COMPARISON: No prior studies available for comparison. FINDINGS: A SHOP COOPER shunt catheter is noted entering via the right superior frontal region with a metallic valve ov erlying the right parietal region. The shunt catheter appears intact to the upper neck. The skull is otherwise intact with no fracture or lytic lesion. The visualized portions of the orbits and paranasal sinuses are normal. IMPRESSION: 1. SHOP COOPER shunt catheter noted as described above. 2. No other abnormality. RPTAT: QQ .Jose Hernandez MD, MD Date Time Electronically viewed and signed by .Jose Hernandez MD, MD on 05/19/2017 11:39 .R/
[2017-05-19 13:31] VITALS: BP 138/71; RESP 18
[2017-05-19] MEDS: CEFTRIAXONE 2 GM/50 ML (PMX) 50 ML IVPB SCH (14:21)
--- NOTE | 2017-05-19 18:43 | PN ---
Date/Time of Note Date/Time of Note DATE: 05/19/17 TIME: 18:43 Assessment/Plan VTE Prophylaxis VTE Prophylaxis Intervention: SCD's Lines/Catheters IV [facility]ter Type (from [facility]): Peripheral IV Urinary Cath still in place: No Assessment/Plan Assessment/Plan 66-year-old male with: 1. Fevers, chills, slightly elevated lactic acid last night. Afebrile over the past 24 hours now. Multiple blood cultures NGTD Urine culture NGTD. Lactic acid trending down to normal. Patient on broad spectrum antibiotics vancomycin and Rocephin CAT scan of the abdomen and pelvis done overnight, BOTTLING ATTENDANT shunt in the right upper quadrant and adequate position, no other acute findings, patient was found to have a distended stomach at the time of the CAT scan but relieved now clinically. If patient recurrently febrile, will perform lumbar puncture. 2. Episode of urinary retention, seems to be chronic at this point, patient on Flomax as an outpatient. Resolved as of this morning, patient on twice daily Flomax. 3. Remote head injury with obstructive hydrocephalus, status post BOTTLING ATTENDANT shunt years ago, family reports that the patient had issues with the BOTTLING ATTENDANT shunt being dislodged in the abdomen in the past. He did have a recent fall with trauma to the abdomen, CAT scan of the abdomen and pelvis showing adequate position of the BOTTLING ATTENDANT shunt tip in the right upper quadrant. Otherwise CAT scan of the head is stable. Per Dr. Knox, patient to get all records from [facility], but unlikely having BOTTLING ATTENDANT shunt dysfunction currently. He is not also advising to tap the BOTTLING ATTENDANT shunt at this point. Unable to perform MRIs 4. Diabetes mellitus, uncontrolled, hemoglobin A1c around 11. Patient is on insulin regimen while inpatient. Diabetic education prior to discharge. Diabetic diet, sliding scale insulin also on board. 5. Hypertension: Continue home medications, hydralazine as needed. Prophylaxis: SCDs for DVT prophylaxis, Pepcid for GI prophylaxis. Disposition: Follow-up on cultures, antibiotic treatment, advance to soft diet, follow-up further neurosurgical commendation once all outpatient records and imaging reviewed by neurosurgery Subjective 24 Hr Interval Summary Free Text/Dictation Patient remains afebrile over the past 24 hours almost, white blood cell count down to normal, ESR at 71. Unable to obtain MRIs, Dr. Knox will be reviewing outside CAT scans and imaging from BOTTLING ATTENDANT shunt placement a few years ago. If any additional fevers, lumbar puncture will be performed. For now all cultures negative and patient afebrile. Exam/Review of Systems Vital Signs Vitals Vital Signs Date Time Temp Pulse Resp B/P Pulse Ox O2 Delivery O2 Flow Rate FiO2 05/19/17 13:31 97.6 79 18 138/71 96 05/17/17 04:27 Room Air Intake and Output 05/18/17 05/18/17 05/19/17 15:00 23:00 07:00 Intake Total 1420 ml 1150 ml Output Total 300 ml Balance 1120 ml 1150 ml Exam Constitutional: alert, oriented (x2), well developed Respiratory: clear to auscultation, normal air movement Cardiovascular: nl pulses, regular rate and rhythm Gastrointestinal: non-tender, soft Musculoskeletal: nl extremities to inspection Extremities: normal pulses, other (No edema, clubbing or cyanosis) Neurological: LEAD ASSISTANT MANAGER II-XII intact, confused, nl speech, other (generalized weakness) Results Result Diagram: 05/19/17 0548 05/19/17 0547 Results 24 hrs Laboratory Tests Test 05/18/17 22:33 05/19/17 05:47 05/19/17 05:48 05/19/17 08:19 Bedside Glucose 86 116 Sodium Level 133 L Potassium Level 3.8 Chloride Level 102 Carbon Dioxide Level 20 L Anion Gap 15 Blood Urea Nitrogen 13 Creatinine 0.95 Glucose Level 109 Calcium Level 8.0 L Total Bilirubin 0.5 Direct Bilirubin 0.00 Indirect Bilirubin 0.5 Aspartate Amino Transf (AST/SGOT) 22 Alanine Aminotransferase (ALT/SGPT) 31 Alkaline Phosphatase 91 Total Protein 6.0 L Albumin 2.6 L Globulin 3.40 H Albumin/Globulin Ratio 0.76 White Blood Count 10.8 Red Blood Count 3.46 L Hemoglobin 10.4 L Hematocrit 30.1 L Mean Corpuscular Volume 87.0 Mean Corpuscular Hemoglobin 30.1 Mean Corpuscular Hemoglobin Concent 34.6 Red Cell Distribution Width 12.2 Platelet Count 307 Mean Platelet Volume 9.9 Neutrophils % 71.6 Lymphocytes % 19.1 Monocytes % 7.9 Eosinophils % 0.4 Basophils % 0.6 Nucleated Red Blood Cells % 0.0 Neutrophils # (Manual) 7.8 H Lymphocytes # 2.1 Monocytes # 0.9 Eosinophils # 0.0 Basophils # 0.1 Nucleated Red Blood Cells # 0.0 Erythrocyte Sedimentation Rate 71 H Phosphorus Level 3.7 Magnesium Level 1.9 Test 05/19/17 12:10 05/19/17 12:42 05/19/17 13:00 05/19/17 13:16 Bedside Glucose 60 L 140 123 Vancomycin Level Trough 11.2 Test 05/19/17 17:23 Bedside Glucose 160 Medications Medications Current Medications Ondansetron HCl (Zofran Tab) 4 mg Q6H PRN PO NAUSEA AND/OR VOMITING; Start at 05:00 Acetaminophen (Tylenol Tab) 650 mg Q6H PRN PO PAIN LEVEL 1-3 OR FEVER Last administered on 05/18/17 20:36; Admin Dose 650 MG; Start 05/17/17 at 05:00 Acetaminophen/ Hydrocodone Bitart (Thornton (5/325)) 1 tab Q6H PRN PO MODERATE PAIN LEVEL 4-6; Start 05/17/17 at 05:00 Docusate Sodium (Colace) 100 mg Q12H PRN PO CONSTIPATION; Start 05/17/17 at 05: 00 Famotidine (Pepcid) 20 mg Q12 PO Last administered on 05/19/17 08:18; Admin Dose 20 MG; Start 05/17/17 at 09:00 Aspirin (Halfprin) 81 mg DAILY PO Last administered on 05/19/17 08:17; Admin Dose 81 MG; Start 05/17/17 at 09:00 Benazepril HCl (Lotensin) 20 mg BID PO Last administered on 05/19/17 08:18; Admin Dose 20 MG; Start 05/17/17 at 09:00 Carvedilol (Coreg) 6.25 mg BID PO Last administered on 05/19/17 08:18; Admin Dose 6.25 MG; Start 05/17/17 at 09:00 Gabapentin (Neurontin) 800 mg TID PO Last administered on 05/19/17 12:14; Admin Dose 800 MG; Start 05/17/17 at 09:00 Gemfibrozil (Lopid) 600 mg BID PO Last administered on 05/19/17 08:17; Admin Dose 600 MG; Start 05/17/17 at 09:00 Hydralazine HCl (Apresoline) 10 mg Q4H PRN IV SBP > 160 Last administered on 13:34; Admin Dose 10 MG; Start 05/17/17 at 06:30 Tamsulosin HCl (Flomax) 0.4 mg BID PO Last administered on 05/19/17 08:17; Admin Dose 0.4 MG; Start 05/17/17 at 12:00 Insulin Glargine 20 unit 20 unit QHS SC Last administered on 05/18/17 22:39; Admin Dose 20 UNIT; Start 05/17/17 at 21:00 Ceftriaxone Sodium (Rocephin) 50 ml @ 100 mls/hr Q24H IVPB Last administered on 05/19/17 14:21; Admin Dose 100 MLS/HR; Start 05/17/17 at 15:00 Diagnostic Test (Pha) 1 ea 1 ea 02 XX ; Start 05/18/17 at 02:00 Sodium Chloride (NS) 1,000 ml @ 100 mls/hr Q10H IV Last administered on 01:00; Admin Dose 100 MLS/HR; Start 05/17/17 at 15:30 Acetaminophen (Tylenol Supp) 650 mg Q6 PRN CO PAIN OR TEMP ABOVE 38C; Start at 15:30 Miscellaneous Information 1 ea NOTE XX ; Start 05/17/17 at 16:30 Glucose (Glutose) 15 gm Q15M PRN PO DECREASED GLUCOSE; Start 05/17/17 at 16:30 Glucose (Glutose) 22.5 gm Q15M PRN PO DECREASED GLUCOSE; Start 05/17/17 at 16: 30 Dextrose (D50w Syringe) 25 ml Q15M PRN IV DECREASED GLUCOSE; Start 05/17/17 at 16:30 Dextrose (D50w Syringe) 50 ml Q15M PRN IV DECREASED GLUCOSE; Start 05/17/17 at 16:30 Glucagon (Glucagen) 1 mg Q15M PRN IM DECREASED GLUCOSE; Start 05/17/17 at 16:30 Glucose (Glutose) 15 gm Q15M PRN BUCCAL DECREASED GLUCOSE; Start 05/17/17 at 16 :30 Amlodipine Besylate 5 mg 5 mg BID PO Last administered on 05/19/17 08:18; Admin Dose 5 MG; Start 05/17/17 at 21:00 Vancomycin HCl/ Sodium Chloride (Vancocin/NS) 150 ml @ 75 mls/hr Q12H IVPB Last administered on 05/19/17t 14:48; Admin Dose 75 MLS/HR; Start 05/18/17 at 14 :00 AUGUST ADAN May 19, 2017 18:43
[2017-05-19 19:19] VITALS: BP 151/69; RESP 20
[2017-05-19] MEDS: ACETAMINOPHEN 325 MG TAB PO PRN (20:31)
[2017-05-19] MEDS: INSULIN GLARGINE [LANtus] 3 ML PEN SC SCH (20:44)
[2017-05-20] MEDS: INSULIN ASPART [NOVOLOG] 3 ML PEN SC SCH ×7 (01:10→20:31)
[2017-05-20] MEDS: ACCU-CHEK XX SCH (01:26)
[2017-05-20] MEDS: VANCOMYCIN 750 MG in SOD CHLORIDE 0.9% 150 ML IVPB SCH ×2 (01:35→14:40)
[2017-05-20] MEDS: SOD CHLORIDE 0.9% 1,000 ML IV SCH ×3 (04:08→22:33)
[2017-05-20 05:51] LABS: BASOPHIL # 0.1 10^3/ul (0.0-0.1); BASOPHILS % 0.9 % (0.0-2.0); EOSINOPHILS # 0.1 10^3/ul (0.0-0.5); EOSINOPHILS % 0.9 % (0.0-7.0); HEMATOCRIT 28.6 % (42.0-52.0); LYMPHOCYTES # 1.8 10^3/ul (0.8-2.9); LYMPHOCYTES % 22.8 % (15.0-51.0); MEAN CORPUSCULAR VOLUME 85.9 fl (82.0-101.0); MEAN PLATELET VOLUME 9.9 fl (7.4-10.4); MONOCYTE # 0.7 10^3/ul (0.3-0.9); MONOCYTES % 9.4 % (0.0-11.0); NEUTROPHILS % 65.5 % (39.0-77.0); PLATELET COUNT 326 10^3/UL (140-415); RED BLOOD COUNT 3.33 10^6/ul (4.70-6.10); RED CELL DISTRIBUTION WIDTH 12.6 % (11.5-14.5); WHITE BLOOD COUNT 7.9 10^3/ul (4.8-10.8)
[2017-05-20 06:07] LABS: MAGNESIUM 1.7 mg/dl (1.7-2.5); PHOSPHORUS 3.8 mg/dl (2.5-4.9)
[2017-05-20 06:17] LABS: ALBUMIN 2.7 g/dl (3.3-4.9); ALBUMIN/GLOBULIN RATIO 0.81; BILIRUBIN,INDIRECT 0.5 mg/dl (0-1.1); BILIRUBIN,TOTAL 0.5 mg/dl (0.2-1.3); CREATININE 0.9 mg/dl (0.61-1.24); POTASSIUM 3.4 mmol/L (3.5-5.1)
[2017-05-20 07:32] VITALS: BP 176/74; RESP 18
[2017-05-20 08:05] VITALS: BP 156/83; PULSE 88; RESP 18
[2017-05-20] MEDS: BENAZEPRIL 20 MG TAB PO SCH ×2 (08:06→20:28)
[2017-05-20] MEDS: TAMSULOSIN (SR) 0.4 MG CAP PO SCH ×2 (08:06→20:28)
[2017-05-20] MEDS: AMLODIPINE 5 MG TAB PO SCH ×2 (08:06→20:28)
[2017-05-20] MEDS: GEMFIBROZIL 600 MG TAB PO SCH ×2 (08:06→20:28)
[2017-05-20] MEDS: GABAPENTIN 400 MG CAP PO SCH ×3 (08:06→20:27)
[2017-05-20] MEDS: ASPIRIN (EC) 81 MG TAB PO SCH (08:06)
[2017-05-20] MEDS: FAMOTIDINE 20 MG TAB PO SCH ×2 (08:08→20:28)
[2017-05-20] MEDS: ACETAMINOPHEN 325 MG TAB PO PRN (13:22)
[2017-05-20 14:00] VITALS: BP 158/74; PULSE 76; RESP 19
[2017-05-20] MEDS ORDERED: POTASSIUM CHLORIDE 20 MEQ POWDER FOR ORAL SOLN PO ONE (14:00)
[2017-05-20] MEDS ORDERED: MAGNESIUM SULFATE 2 GM/50 ML 50 ML IVPB ONE (14:00)
--- NOTE | 2017-05-20 16:00 | PN ---
Date/Time of Note Date/Time of Note DATE: 05/20/17 TIME: 16:00 Assessment/Plan VTE Prophylaxis VTE Prophylaxis Intervention: SCD's Lines/Catheters IV C[facility] Type ([facility] Peripheral IV Urinary Cath still in place: No Assessment/Plan Assessment/Plan 66-year-old male with: 1. Fevers, chills, slightly elevated lactic acid last night. Afebrile for the past 48 hours. Multiple blood cultures NGTD Urine culture NGTD. Lactic acid trending down to normal. Patient on broad spectrum antibiotics vancomycin and Rocephin CAT scan of the abdomen and pelvis done overnight, AIRCRAFT LIFE SUPPORT FITTER shunt in the right upper quadrant and adequate position, no other acute findings, patient was found to have a distended stomach at the time of the CAT scan but relieved now clinically. If patient recurrently febrile, will perform lumbar puncture. So far no need 2. Episode of urinary retention, seems to be chronic at this point, patient on Flomax as an outpatient. Resolved as of this morning, patient on twice daily Flomax. 3. Remote head injury with obstructive hydrocephalus, status post AIRCRAFT LIFE SUPPORT FITTER shunt years ago, family reports that the patient had issues with the AIRCRAFT LIFE SUPPORT FITTER shunt being dislodged in the abdomen in the past. He did have a recent fall with trauma to the abdomen, CAT scan of the abdomen and pelvis showing adequate position of the AIRCRAFT LIFE SUPPORT FITTER shunt tip in the right upper quadrant. Otherwise CAT scan of the head is stable. Per Dr. Knox, patient to get all records from [facility], but unlikely having AIRCRAFT LIFE SUPPORT FITTER shunt dysfunction currently. He is not also advising to tap the AIRCRAFT LIFE SUPPORT FITTER shunt at this point. Unable to perform MRIs Tolerating soft diet 4. Diabetes mellitus, uncontrolled, hemoglobin A1c around 11. Patient is on insulin regimen while inpatient. Diabetic education prior to discharge. Diabetic diet, sliding scale insulin also on board. 5. Hypertension: Continue home medications, hydralazine as needed. Prophylaxis: SCDs for DVT prophylaxis, Pepcid for GI prophylaxis. Disposition: Most cultures negative, remaining no growth to date. Continue current antibiotic treatment, follow-up further neurosurgical commendation once all outpatient records and imaging reviewed by neurosurgery Subjective 24 Hr Interval Summary Free Text/Dictation Patient doing well, he has been afebrile for 2 days. White blood cell count down to normal. Clear source of infection but resolving. Neurosurgery evaluation ongoing. Physical therapy will be ordered. Exam/Review of Systems Vital Signs Vitals Vital Signs Date Time Temp Pulse Resp B/P Pulse Ox O2 Delivery O2 Flow Rate FiO2 05/20/17 08:05 88 18 156/83 05/20/17 07:32 98.9 96 05/17/17 04:27 Room Air Intake and Output 05/19/17 05/19/17 05/20/17 15:00 23:00 07:00 Intake Total 50 ml 1050 ml 1010 ml Output Total 400 ml 1150 ml Balance 50 ml 650 ml -140 ml Exam Constitutional: alert, frail, oriented (x2) Cardiovascular: nl pulses, regular rate and rhythm Gastrointestinal: non-tender, soft Musculoskeletal: nl extremities to inspection Extremities: normal pulses, other (No edema, clubbing or cyanosis) Neurological: WARE FINISHER II-XII intact, confused, nl speech, other (Unsteadiness) Results Result Diagram: 05/20/17 0505 05/20/17 0505 Results 24 hrs Laboratory Tests Test 05/19/17 17:23 05/19/17 20:37 05/20/17 05:05 05/20/17 07:50 Bedside Glucose 160 107 147 White Blood Count 7.9 # Red Blood Count 3.33 L Hemoglobin 10.0 L Hematocrit 28.6 L Mean Corpuscular Volume 85.9 Mean Corpuscular Hemoglobin 30.0 Mean Corpuscular Hemoglobin Concent 35.0 Red Cell Distribution Width 12.6 Platelet Count 326 Mean Platelet Volume 9.9 Neutrophils % 65.5 Lymphocytes % 22.8 Monocytes % 9.4 Eosinophils % 0.9 Basophils % 0.9 Nucleated Red Blood Cells % 0.0 Neutrophils # (Manual) 5.2 Lymphocytes # 1.8 Monocytes # 0.7 Eosinophils # 0.1 Basophils # 0.1 Nucleated Red Blood Cells # 0.0 Sodium Level 136 Potassium Level 3.4 L Chloride Level 106 Carbon Dioxide Level 19 L Anion Gap 14 Blood Urea Nitrogen 10 Creatinine 0.90 Glucose Level 109 Calcium Level 8.0 L Phosphorus Level 3.8 Magnesium Level 1.7 Total Bilirubin 0.5 Direct Bilirubin 0.00 Indirect Bilirubin 0.5 Aspartate Amino Transf (AST/SGOT) 20 Alanine Aminotransferase (ALT/SGPT) 31 Alkaline Phosphatase 93 Total Protein 6.0 L Albumin 2.7 L Globulin 3.30 H Albumin/Globulin Ratio 0.81 Test 05/20/17 12:57 Bedside Glucose 99 Medications Medications Current Medications Ondansetron HCl (Zofran Tab) 4 mg Q6H PRN PO NAUSEA AND/OR VOMITING; Start at 05:00 Acetaminophen (Tylenol Tab) 650 mg Q6H PRN PO PAIN LEVEL 1-3 OR FEVER Last administered on 05/20/17 13:22; Admin Dose 650 MG; Start 05/17/17 at 05:00 Acetaminophen/ Hydrocodone Bitart (Alvin (5/325)) 1 tab Q6H PRN PO MODERATE PAIN LEVEL 4-6; Start 05/17/17 at 05:00 Docusate Sodium (Colace) 100 mg Q12H PRN PO CONSTIPATION; Start 05/17/17 at 05: 00 Famotidine (Pepcid) 20 mg Q12 PO Last administered on 05/20/17 08:08; Admin Dose 20 MG; Start 05/17/17 at 09:00 Aspirin (Halfprin) 81 mg DAILY PO Last administered on 05/20/17 08:06; Admin Dose 81 MG; Start 05/17/17 at 09:00 Benazepril HCl (Lotensin) 20 mg BID PO Last administered on 05/20/17 08:06; Admin Dose 20 MG; Start 05/17/17 at 09:00 Carvedilol (Coreg) 6.25 mg BID PO Last administered on 05/20/17 08:07; Admin Dose 6.25 MG; Start 05/17/17 at 09:00 Gabapentin (Neurontin) 800 mg TID PO Last administered on 05/20/17 13:22; Admin Dose 800 MG; Start 05/17/17 at 09:00 Gemfibrozil (Lopid) 600 mg BID PO Last administered on 05/20/17 08:06; Admin Dose 600 MG; Start 05/17/17 at 09:00 Hydralazine HCl (Apresoline) 10 mg Q4H PRN IV SBP > 160 Last administered on 13:34; Admin Dose 10 MG; Start 05/17/17 at 06:30 Tamsulosin HCl (Flomax) 0.4 mg BID PO Last administered on 05/20/17 08:06; Admin Dose 0.4 MG; Start 05/17/17 at 12:00 Insulin Glargine 20 unit 20 unit QHS SC Last administered on 05/19/17 20:44; Admin Dose 20 UNIT; Start 05/17/17 at 21:00 Ceftriaxone Sodium (Rocephin) 50 ml @ 100 mls/hr Q24H IVPB Last administered on 05/19/17 14:21; Admin Dose 100 MLS/HR; Start 05/17/17 at 15:00 Diagnostic Test (Pha) 1 ea 1 ea 02 XX ; Start 05/18/17 at 02:00 Sodium Chloride (NS) 1,000 ml @ 100 mls/hr Q10H IV Last administered on 14:43; Admin Dose 100 MLS/HR; Start 05/17/17 at 15:30 Acetaminophen (Tylenol Supp) 650 mg Q6 PRN DE PAIN OR TEMP ABOVE 38C; Start at 15:30 Miscellaneous Information 1 ea NOTE XX ; Start 05/17/17 at 16:30 Glucose (Glutose) 15 gm Q15M PRN PO DECREASED GLUCOSE; Start 05/17/17 at 16:30 Glucose (Glutose) 22.5 gm Q15M PRN PO DECREASED GLUCOSE; Start 05/17/17 at 16: 30 Dextrose (D50w Syringe) 25 ml Q15M PRN IV DECREASED GLUCOSE; Start 05/17/17 at 16:30 Dextrose (D50w Syringe) 50 ml Q15M PRN IV DECREASED GLUCOSE; Start 05/17/17 at 16:30 Glucagon (Glucagen) 1 mg Q15M PRN IM DECREASED GLUCOSE; Start 05/17/17 at 16:30 Glucose (Glutose) 15 gm Q15M PRN BUCCAL DECREASED GLUCOSE; Start 05/17/17 at 16 :30 Amlodipine Besylate 5 mg 5 mg BID PO Last administered on 05/20/17 08:06; Admin Dose 5 MG; Start 05/17/17 at 21:00 Vancomycin HCl/ Sodium Chloride (Vancocin/NS) 150 ml @ 75 mls/hr Q12H IVPB Last administered on 05/20/17 14:40; Admin Dose 75 MLS/HR; Start 05/18/17 at 14 :00 AUGUST ADAN May 20, 2017 16:00
[2017-05-20] MEDS: CEFTRIAXONE 2 GM/50 ML (PMX) 50 ML IVPB SCH (16:39)
[2017-05-20 20:08] VITALS: BP 161/74; RESP 18
[2017-05-20] MEDS: INSULIN GLARGINE [LANtus] 3 ML PEN SC SCH (20:35)
[2017-05-20] MEDS: HYDROCODONE/APAP (5/325) TAB PO PRN (21:55)
[2017-05-21] MEDS: ACCU-CHEK XX SCH (01:26)
[2017-05-21 01:28] VITALS: BP 158/78; RESP 18
[2017-05-21] MEDS: VANCOMYCIN 750 MG in SOD CHLORIDE 0.9% 150 ML IVPB SCH ×2 (01:36→17:58)
[2017-05-21] MEDS: SOD CHLORIDE 0.9% 1,000 ML IV SCH ×3 (02:00→19:30)
[2017-05-21 06:21] LABS: BASOPHIL # 0.1 10^3/ul (0.0-0.1); BASOPHILS % 0.9 % (0.0-2.0); EOSINOPHILS # 0.1 10^3/ul (0.0-0.5); EOSINOPHILS % 0.9 % (0.0-7.0); HEMATOCRIT 28.4 % (42.0-52.0); HEMOGLOBIN 9.6 g/dl (14.0-18.0); LYMPHOCYTES # 2.1 10^3/ul (0.8-2.9); MEAN CORPUSCULAR HEMOGLOBIN 29.5 pg (29.0-33.0); MEAN CORPUSCULAR HGB CONC 33.8 g/dl (32.0-37.0); MEAN CORPUSCULAR VOLUME 87.4 fl (82.0-101.0); MEAN PLATELET VOLUME 9.7 fl (7.4-10.4); MONOCYTE # 0.8 10^3/ul (0.3-0.9); NEUTROPHILS % 58.9 % (39.0-77.0); PLATELET COUNT 353 10^3/UL (140-415); RED BLOOD COUNT 3.25 10^6/ul (4.70-6.10); RED CELL DISTRIBUTION WIDTH 12.9 % (11.5-14.5); WHITE BLOOD COUNT 7.6 10^3/ul (4.8-10.8)
[2017-05-21 07:08] LABS: CREATININE 0.86 mg/dl (0.61-1.24); POTASSIUM 3.4 mmol/L (3.5-5.1)
[2017-05-21] MEDS: INSULIN ASPART [NOVOLOG] 3 ML PEN SC SCH ×6 (08:07→21:00)
[2017-05-21] MEDS: GEMFIBROZIL 600 MG TAB PO SCH ×2 (08:08→21:13)
[2017-05-21] MEDS: FAMOTIDINE 20 MG TAB PO SCH ×2 (08:08→21:14)
[2017-05-21] MEDS: BENAZEPRIL 20 MG TAB PO SCH ×2 (08:09→21:13)
[2017-05-21] MEDS: TAMSULOSIN (SR) 0.4 MG CAP PO SCH ×2 (08:09→21:13)
[2017-05-21] MEDS: AMLODIPINE 5 MG TAB PO SCH ×2 (08:09→21:14)
[2017-05-21] MEDS: GABAPENTIN 400 MG CAP PO SCH ×3 (08:09→21:13)
[2017-05-21] MEDS: ASPIRIN (EC) 81 MG TAB PO SCH (08:09)
[2017-05-21 08:36] VITALS: BP 175/81; RESP 20
[2017-05-21] MEDS ORDERED: POTASSIUM CHLORIDE 20 MEQ POWDER FOR ORAL SOLN PO ONE (09:30)
--- NOTE | 2017-05-21 11:57 | PN ---
Date/Time of Note Date/Time of Note DATE: 05/21/17 TIME: 11:42 Assessment/Plan VTE Prophylaxis VTE Prophylaxis Intervention: SCD's Lines/Catheters IV Catheter Type (from [facility]): Peripheral IV Urinary Cath still in place: No Assessment/Plan Assessment/Plan 66-year-old male with: 1. Episode of unresponsiveness, she was noted to have the flap on top of his head pulsating which is where more or less the REGIONAL DIRECTOR OF ADMISSIONS shunt is, he was unresponsive for a few minutes, he is now awake and back to baseline. He remained hemodynamically stable throughout. Stat head CT noncontrast is pending, Dr. Knox has been notified. I may need to do an EEG later today and or a lumbar puncture for further evaluation if CAT scan of the head is within normal. Remote head injury with obstructive hydrocephalus, status post REGIONAL DIRECTOR OF ADMISSIONS shunt years ago, family reports that the patient had issues with the REGIONAL DIRECTOR OF ADMISSIONS shunt being dislodged in the abdomen in the past. He did have a recent fall with trauma to the abdomen, CAT scan of the abdomen and pelvis showing adequate position of the REGIONAL DIRECTOR OF ADMISSIONS shunt tip in the right upper quadrant. Otherwise CAT scan of the head is stable. Per Dr. Knox, patient to get all records from [facility], but unlikely having REGIONAL DIRECTOR OF ADMISSIONS shunt dysfunction currently. He is not also advising to tap the REGIONAL DIRECTOR OF ADMISSIONS shunt at this point. Awaiting imaging from [place] to be sent over to [facility], apparently will be arriving today. Unable to perform MRIs. 2. Fevers, chills, slightly elevated lactic acid last night. Afebrile for the past 3 days now lactic acid within normal limits. Multiple blood cultures NGTD Urine culture NGTD. Patient on broad spectrum antibiotics vancomycin and Rocephin CAT scan of the abdomen and pelvis done overnight, REGIONAL DIRECTOR OF ADMISSIONS shunt in the right upper quadrant and adequate position, no other acute findings, patient was found to have a distended stomach at the time of the CAT scan but relieved now clinically. If patient recurrently febrile, will perform lumbar puncture. 3. Episode of urinary retention, seems to be chronic at this point, patient on Flomax as an outpatient. Resolved as of this morning, patient on twice daily Flomax. 4. Diabetes mellitus, uncontrolled, hemoglobin A1c around 11. Patient is on insulin regimen while inpatient. Diabetic education prior to discharge. Diabetic diet, sliding scale insulin also on board. 5. Hypertension: Continue home medications, hydralazine as needed. Prophylaxis: SCDs for DVT prophylaxis, Pepcid for GI prophylaxis. Disposition: All cultures negative, and some no growth to date. Continue current antibiotic treatment, follow-up further neurosurgical commendation once all outpatient records and imaging, CT head being done this morning reviewed by neurosurgery. Subjective 24 Hr Interval Summary Free Text/Dictation Patient had an episode of unresponsiveness, he was not answering any questions closing his eyes, all vital signs stable. It was noted that his flap on right frontal area with pulsating. CAT scan of the head pending, patient remained stable and waking up currently therefore no need to transfer. Continue current care. Dr. Knox will be notified. Exam/Review of Systems Vital Signs Vitals Vital Signs Date Time Temp Pulse Resp B/P Pulse Ox O2 Delivery O2 Flow Rate FiO2 05/21/17 08:36 98.4 82 20 175/81 97 05/20/17 14:00 Room Air Intake and Output 05/20/17 05/20/17 05/21/17 14:59 22:59 06:59 Intake Total 850 ml 1620 ml Output Total 400 ml 1320 ml Balance 450 ml 300 ml Exam Constitutional: other (More alert status post unresponsive episode) Respiratory: clear to auscultation, normal air movement Cardiovascular: nl pulses, regular rate and rhythm Gastrointestinal: non-tender, soft Musculoskeletal: nl extremities to inspection Extremities: normal pulses Neurological: [employer] [place] II-XII intact, other (status post episode of unresponsiveness , becoming more aware) Results Result Diagram: 05/21/17 0536 05/21/17 0536 Results 24 hrs Laboratory Tests Test 05/20/17 12:57 05/20/17 17:14 05/20/17 20:30 05/21/17 05:36 Bedside Glucose 99 191 161 White Blood Count 7.6 Red Blood Count 3.25 L Hemoglobin 9.6 L Hematocrit 28.4 L Mean Corpuscular Volume 87.4 Mean Corpuscular Hemoglobin 29.5 Mean Corpuscular Hemoglobin Concent 33.8 Red Cell Distribution Width 12.9 Platelet Count 353 Mean Platelet Volume 9.7 Neutrophils % 58.9 Lymphocytes % 28.0 Monocytes % 11.0 Eosinophils % 0.9 Basophils % 0.9 Nucleated Red Blood Cells % 0.0 Neutrophils # (Manual) 4.5 Lymphocytes # 2.1 Monocytes # 0.8 Eosinophils # 0.1 Basophils # 0.1 Nucleated Red Blood Cells # 0.0 Sodium Level 137 Potassium Level 3.4 L Chloride Level 112 H Carbon Dioxide Level 19 L Anion Gap 9 # Blood Urea Nitrogen 8 Creatinine 0.86 Glucose Level 74 Calcium Level 8.0 L Phosphorus Level 4.0 Magnesium Level 2.0 Test 05/21/17 07:48 05/21/17 10:32 Bedside Glucose 75 121 Medications Medications Current Medications Ondansetron HCl (Zofran Tab) 4 mg Q6H PRN PO NAUSEA AND/OR VOMITING; Start at 05:00 Acetaminophen (Tylenol Tab) 650 mg Q6H PRN PO PAIN LEVEL 1-3 OR FEVER Last administered on 05/20/17 13:22; Admin Dose 650 MG; Start 05/17/17 at 05:00 Acetaminophen/ Hydrocodone Bitart ([place] (5/325)) 1 tab Q6H PRN PO MODERATE PAIN LEVEL 4-6 Last administered on 05/20/17 21:55; Admin Dose 1 TAB; Start at 05:00 Docusate Sodium (Colace) 100 mg Q12H PRN PO CONSTIPATION; Start 05/17/17 at 05: 00 Famotidine (Pepcid) 20 mg Q12 PO Last administered on 05/21/17 08:08; Admin Dose 20 MG; Start 05/17/17 at 09:00 Aspirin (Halfprin) 81 mg DAILY PO Last administered on 05/21/17 08:09; Admin Dose 81 MG; Start 05/17/17 at 09:00 Benazepril HCl (Lotensin) 20 mg BID PO Last administered on 05/21/17 08:09; Admin Dose 20 MG; Start 05/17/17 at 09:00 Gabapentin (Neurontin) 800 mg TID PO Last administered on 05/21/17 08:09; Admin Dose 800 MG; Start 05/17/17 at 09:00 Gemfibrozil (Lopid) 600 mg BID PO Last administered on 05/21/17 08:08; Admin Dose 600 MG; Start 05/17/17 at 09:00 Hydralazine HCl (Apresoline) 10 mg Q4H PRN IV SBP > 160 Last administered on 8/ 29/17at 13:34; Admin Dose 10 MG; Start 05/17/17 at 06:30 Tamsulosin HCl (Flomax) 0.4 mg BID PO Last administered on 05/21/17 08:09; Admin Dose 0.4 MG; Start 05/17/17 at 12:00 Insulin Glargine 20 unit 20 unit QHS SC Last administered on 05/20/17 20:35; Admin Dose 20 UNIT; Start 05/17/17 at 21:00 Ceftriaxone Sodium (Rocephin) 50 ml @ 100 mls/hr Q24H IVPB Last administered on 05/20/17 16:39; Admin Dose 100 MLS/HR; Start 05/17/17 at 15:00 Diagnostic Test (Pha) 1 ea 1 ea 02 XX ; Start 05/18/17 at 02:00 Sodium Chloride (NS) 1,000 ml @ 100 mls/hr Q10H IV Last administered on 02:00; Admin Dose 100 MLS/HR; Start 05/17/17 at 15:30 Acetaminophen (Tylenol Supp) 650 mg Q6 PRN [place] PAIN OR TEMP ABOVE 38C; Start at 15:30 Miscellaneous Information 1 ea NOTE XX ; Start 05/17/17 at 16:30 Glucose (Glutose) 15 gm Q15M PRN PO DECREASED GLUCOSE; Start 05/17/17 at 16:30 Glucose (Glutose) 22.5 gm Q15M PRN PO DECREASED GLUCOSE; Start 05/17/17 at 16: 30 Dextrose (D50w Syringe) 25 ml Q15M PRN IV DECREASED GLUCOSE; Start 05/17/17 at 16:30 Dextrose (D50w Syringe) 50 ml Q15M PRN IV DECREASED GLUCOSE; Start 05/17/17 at 16:30 Glucagon (Glucagen) 1 mg Q15M PRN IM DECREASED GLUCOSE; Start 05/17/17 at 16:30 Glucose (Glutose) 15 gm Q15M PRN BUCCAL DECREASED GLUCOSE; Start 05/17/17 at 16 :30 Amlodipine Besylate 5 mg 5 mg BID PO Last administered on 05/21/17 08:09; Admin Dose 5 MG; Start 05/17/17 at 21:00 Vancomycin HCl/ Sodium Chloride (Vancocin/NS) 150 ml @ 75 mls/hr Q12H IVPB Last administered on 05/21/17t 01:36; Admin Dose 75 MLS/HR; Start 05/18/17 at 14: 00 Carvedilol (Coreg) 12.5 mg BID PO ; Start 05/21/17 at 10:00 AUGUST ADAN May 21, 2017 11:55
--- NOTE | 2017-05-21 12:10 | RADRPT ---
PROCEDURE: CT Brain without contrast. CLINICAL INDICATION: Neurologic deficit TECHNIQUE: A CT of the brain was performed on multidetector high-resolution CT scanner utilizing a xial sections from the skull base through the vertex without contrast. One or more of the following dose reduction techniques were used: Automated exposure control, Adjustment of the mA and/or kV acc ording to patient size, and/or use of iterative reconstruction technique. DOSE: CTDI = 44 mGy and the DLP = 720 mGy-cm. COMPARISON: Head CT 05/17/2017 FINDINGS: Frontal craniotomy changes. Stable position of the right transfrontal ventricular shunt with tip in the frontal horn left lateral ventricle. Stable ventricle size with bifrontal horn diameter measur ing 42 mm. No acute intracranial hemorrhage, significant mass effect or midline shift. Chronic areas of encephalomalacia in the bilateral frontal lobes again seen. Patchy hypoattenuation of the cerebr al white matter is compatible with chronic microvascular ischemic changes. Vascular calcifications. Prominence of the cortical sulci and ventricles are related to mild cerebral volume loss. No signi ficant opacification of the visualized paranasal sinuses or mastoids. IMPRESSION: No significant interval change since 05/17/2017. Stable position right transfrontal ventricular shunt without change in ventricle size. No acute intracranial hemorrhage or significant mass effect. Chronic microvascular disease and intracranial atherosclerosis. Chronic bilateral frontal lobe encephalomalacia. RPTAT: AA .Keyshawn Castillo MD, MD Date Time Electronically viewed and signed by .Keyshawn Castillo MD, MD on 05/21/2017 12:10 .T/
--- NOTE | 2017-05-21 16:36 | RADRPT ---
PROCEDURE: Fluoroscopic guided lumbar puncture. CLINICAL INDICATION: Headache. Altered level of consciousness TECHNIQUE: Prior to the procedure, informed consent was obtained. Risks including bleeding and in fection were explained to the patient. The patient understood and was willing to proceed. A proced ural pause was performed. The patient's name, date of , and procedure to be performed were yunior ified. Using local anesthetic, sterile technique, and fluoroscopic guidance, a 22-gauge spinal needle was a dvanced into the thecal sac at the L4-5 level. Opening pressure was 5 cm of water. 4 mL of initial ly body then clear cerebrospinal fluid was aspirated and sent for laboratory analysis. The needle w as removed. A dressing was applied. The patient tolerated the procedure well. A total of 0.1 minutes of fluoroscopy time was used. 3 images were obtained with image intensifier. COMPARISON: None. FINDINGS: Images demonstrate the needle at the L4-5 level in the thecal sac. IMPRESSION: Satisfactory fluoroscopic guided lumbar puncture. The opening pressure was 5 cm of water. RPTAT: QQ .Jose Hernandez MD, Date Time Electronically viewed and signed by .Jose Hernandez MD, on 05/21/2017 16:36 .R/
[2017-05-21 17:06] VITALS: BP 185/88; RESP 20
[2017-05-21 17:12] LABS: CSF MN% 76.3 %; CSF PMN% 23.7 %
[2017-05-21] MEDS: hydrALAzine 20 MG INJ IV PRN (17:19)
[2017-05-21 17:31] LABS: GLUCOSE,CSF 62 mg/dl (50-80)
[2017-05-21 18:41] LABS: CSF COLOR PINKISH; CSF VOLUME 2.5 ml
[2017-05-21 18:42] LABS: CSF#TUBE COUNT TUBE#4; CSF#TUBES REC'D 4
[2017-05-21 20:20] VITALS: BP 148/60; RESP 20
[2017-05-21] MEDS: CEFTRIAXONE 2 GM/50 ML (PMX) 50 ML IVPB SCH (21:12)
[2017-05-21] MEDS: INSULIN GLARGINE [LANtus] 3 ML PEN SC SCH (22:06)
[2017-05-22] MEDS: ACCU-CHEK XX SCH (02:00)
[2017-05-22 02:23] VITALS: BP 162/77; RESP 20
[2017-05-22 03:45] VITALS: BP 155/76; PULSE 82; RESP 18
[2017-05-22] MEDS: SOD CHLORIDE 0.9% 1,000 ML IV SCH ×3 (03:56→19:46)
[2017-05-22 06:06] LABS: BASOPHIL # 0.1 10^3/ul (0.0-0.1); BASOPHILS % 0.8 % (0.0-2.0); EOSINOPHILS # 0.1 10^3/ul (0.0-0.5); EOSINOPHILS % 0.8 % (0.0-7.0); HEMATOCRIT 25.8 % (42.0-52.0); LYMPHOCYTES # 1.6 10^3/ul (0.8-2.9); LYMPHOCYTES % 23.6 % (15.0-51.0); MEAN CORPUSCULAR HEMOGLOBIN 30.4 pg (29.0-33.0); MEAN CORPUSCULAR HGB CONC 34.9 g/dl (32.0-37.0); MEAN CORPUSCULAR VOLUME 87.2 fl (82.0-101.0); MEAN PLATELET VOLUME 9.7 fl (7.4-10.4); MONOCYTE # 0.6 10^3/ul (0.3-0.9); MONOCYTES % 9.7 % (0.0-11.0); NEUTROPHILS % 64.8 % (39.0-77.0); PLATELET COUNT 341 10^3/UL (140-415); RED BLOOD COUNT 2.96 10^6/ul (4.70-6.10); RED CELL DISTRIBUTION WIDTH 12.9 % (11.5-14.5); WHITE BLOOD COUNT 6.6 10^3/ul (4.8-10.8)
[2017-05-22 06:21] LABS: MAGNESIUM 1.9 mg/dl (1.7-2.5); PHOSPHORUS 3.6 mg/dl (2.5-4.9)
[2017-05-22] MEDS: VANCOMYCIN 750 MG in SOD CHLORIDE 0.9% 150 ML IVPB SCH ×2 (06:41→18:42)
[2017-05-22 06:43] LABS: CREATININE 0.81 mg/dl (0.61-1.24); POTASSIUM 3.6 mmol/L (3.5-5.1)
[2017-05-22 07:20] VITALS: BP 164/69; RESP 18
[2017-05-22] MEDS: INSULIN ASPART [NOVOLOG] 3 ML PEN SC SCH ×7 (08:03→21:09)
[2017-05-22] MEDS: AMLODIPINE 5 MG TAB PO SCH ×2 (09:10→20:50)
[2017-05-22] MEDS: GABAPENTIN 400 MG CAP PO SCH ×3 (09:10→20:51)
[2017-05-22] MEDS: ASPIRIN (EC) 81 MG TAB PO SCH (09:10)
[2017-05-22] MEDS: GEMFIBROZIL 600 MG TAB PO SCH ×2 (09:10→20:51)
[2017-05-22] MEDS: FAMOTIDINE 20 MG TAB PO SCH ×2 (09:11→20:49)
[2017-05-22] MEDS: TAMSULOSIN (SR) 0.4 MG CAP PO SCH ×2 (09:11→20:50)
[2017-05-22] MEDS: BENAZEPRIL 20 MG TAB PO SCH ×2 (09:11→20:51)
[2017-05-22 09:15] VITALS: BP 141/70; PULSE 77
[2017-05-22 13:12] VITALS: BP 128/61; RESP 16
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
--- NOTE | 2017-05-22 15:13 | PN ---
Date/Time of Note Date/Time of Note DATE: 05/22/17 TIME: 15:09 Assessment/Plan VTE Prophylaxis VTE Prophylaxis Intervention: SCD's Lines/Catheters IV C[facility]ter Type (from [facility]): Peripheral IV Urinary Cath still in place: No Assessment/Plan Chief Complaint/Hosp Course 1. Episode of unresponsiveness, she was noted to have the flap on top of his head pulsating which is where more or less the ASSOCIATE PROFESSOR OF COUNSELING shunt is, he was unresponsive for a few minutes, he is now awake and back to baseline. He remained hemodynamically stable throughout. Stat head CT noncontrast shows no acute changes, Dr. Knox aware We will obtain an EEG Remote head injury with obstructive hydrocephalus, status post ASSOCIATE PROFESSOR OF COUNSELING shunt years ago, family reports that the patient had issues with the ASSOCIATE PROFESSOR OF COUNSELING shunt being dislodged in the abdomen in the past. He did have a recent fall with trauma to the abdomen, CAT scan of the abdomen and pelvis showing adequate position of the ASSOCIATE PROFESSOR OF COUNSELING shunt tip in the right upper quadrant. Otherwise CAT scan of the head is stable. Per Dr. Knox, patient to get all records from [facility], but unlikely having ASSOCIATE PROFESSOR OF COUNSELING shunt dysfunction currently. He is not also advising to tap the ASSOCIATE PROFESSOR OF COUNSELING shunt at this point. Awaiting imaging from [place] to be sent over to [facility], apparently will be arriving today. Unable to perform MRIs. 2. Fevers, chills, slightly elevated lactic acid last night. Afebrile for the past 3 days now lactic acid within normal limits. Multiple blood cultures NGTD Urine culture NGTD. Patient on broad spectrum antibiotics vancomycin and Rocephin CAT scan of the abdomen and pelvis done, ASSOCIATE PROFESSOR [employer] COUNSELING shunt in the right upper quadrant and adequate position, no other acute findings, patient was found to have a distended stomach at the time of the CAT scan but relieved now clinically. If patient recurrently febrile, will perform lumbar puncture. 3. Episode of urinary retention, seems to be chronic at this point, patient on Flomax as an outpatient. Resolved as of this morning, patient on twice daily Flomax. 4. Diabetes mellitus, uncontrolled, hemoglobin A1c around 11. Patient is on insulin regimen while inpatient. Diabetic education prior to discharge. Diabetic diet, sliding scale insulin also on board. 5. Hypertension: Continue home medications, hydralazine as needed. Prophylaxis: SCDs for DVT prophylaxis, Pepcid for GI prophylaxis. Disposition: All cultures negative, and some no growth to date. Continue current antibiotic treatment, follow-up further neurosurgical commendation once all outpatient records and imaging, follow-up on EEG Problems: Subjective 24 Hr Interval Summary Subjective hx not possible: pt non-verbal Exam/Review of Systems Vital Signs Vitals Vital Signs Date Time Temp Pulse Resp B/P Pulse Ox O2 Delivery O2 Flow Rate FiO2 05/22/17 13:12 98.6 77 16 128/61 96 05/20/17 14:00 Room Air Intake and Output 05/21/17 05/21/17 05/22/17 15:00 23:00 07:00 Intake Total 680 ml 970 ml Output Total 800 ml 800 ml Balance -120 ml 170 ml Exam Constitutional: non-verbal Respiratory: clear to auscultation Cardiovascular: regular rate and rhythm Gastrointestinal: soft, No distended Musculoskeletal: nl extremities to inspection Results Result Diagram: 05/22/17 0532 05/22/17 0532 Results 24 hrs Laboratory Tests Test 05/21/17 15:50 05/21/17 17:55 05/21/17 21:20 05/22/17 05:32 CSF Tubes Submitted 4 CSF Volume 2.5 CSF Appearance HAZY CSF Color PINKISH CSF WBC 38 *H CSF RBC 6 H CSF Cell Count Tube # TUBE#4 CSF Mononuclear Cells % (Auto) 76.3 CSF Polynuclear WBCs (%) 23.7 CSF Glucose 62 CSF Total Protein 168 H Bedside Glucose 162 119 White Blood Count 6.6 Red Blood Count 2.96 L Hemoglobin 9.0 L Hematocrit 25.8 L Mean Corpuscular Volume 87.2 Mean Corpuscular Hemoglobin 30.4 Mean Corpuscular Hemoglobin Concent 34.9 Red Cell Distribution Width 12.9 Platelet Count 341 Mean Platelet Volume 9.7 Neutrophils % 64.8 Lymphocytes % 23.6 Monocytes % 9.7 Eosinophils % 0.8 Basophils % 0.8 Nucleated Red Blood Cells % 0.0 Neutrophils # (Manual) 4.3 Lymphocytes # 1.6 Monocytes # 0.6 Eosinophils # 0.1 Basophils # 0.1 Nucleated Red Blood Cells # 0.0 Sodium Level 135 Potassium Level 3.6 Chloride Level 113 H Carbon Dioxide Level 18 L Anion Gap 8 Blood Urea Nitrogen 7 Creatinine 0.81 Glucose Level 128 # Calcium Level 8.0 L Phosphorus Level 3.6 Magnesium Level 1.9 Test 05/22/17 08:03 05/22/17 12:16 Bedside Glucose 123 276 H Medications Medications Current Medications Ondansetron HCl (Zofran Tab) 4 mg Q6H PRN PO NAUSEA AND/OR VOMITING; Start at 05:00 Acetaminophen (Tylenol Tab) 650 mg Q6H PRN PO PAIN LEVEL 1-3 OR FEVER Last administered on 05/20/17 13:22; Admin Dose 650 MG; Start 05/17/17 at 05:00 Acetaminophen/ Hydrocodone Bitart ([place] (5/325)) 1 tab Q6H PRN PO MODERATE PAIN LEVEL 4-6 Last administered on 05/20/17 21:55; Admin Dose 1 TAB; Start at 05:00 Docusate Sodium (Colace) 100 mg Q12H PRN PO CONSTIPATION; Start 05/17/17 at 05: 00 Famotidine (Pepcid) 20 mg Q12 PO Last administered on 05/22/17 09:11; Admin Dose 20 MG; Start 05/17/17 at 09:00 Aspirin (Halfprin) 81 mg DAILY PO Last administered on 05/22/17 09:10; Admin Dose 81 MG; Start 05/17/17 at 09:00 Benazepril HCl (Lotensin) 20 mg BID PO Last administered on 05/22/17 09:11; Admin Dose 20 MG; Start 05/17/17 at 09:00 Gabapentin (Neurontin) 800 mg TID PO Last administered on 05/22/17 12:58; Admin Dose 800 MG; Start 05/17/17 at 09:00 Gemfibrozil (Lopid) 600 mg BID PO Last administered on 05/22/17 09:10; Admin Dose 600 MG; Start 05/17/17 at 09:00 Hydralazine HCl (Apresoline) 10 mg Q4H PRN IV SBP > 160 Last administered on 17:19; Admin Dose 10 MG; Start 05/17/17 at 06:30 Tamsulosin HCl (Flomax) 0.4 mg BID PO Last administered on 05/22/17 09:11; Admin Dose 0.4 MG; Start 05/17/17 at 12:00 Insulin Glargine 20 unit 20 unit QHS SC Last administered on 05/21/17 22:06; Admin Dose 20 UNIT; Start 05/17/17 at 21:00 Ceftriaxone Sodium (Rocephin) 50 ml @ 100 mls/hr Q24H IVPB Last administered on 05/21/17 21:12; Admin Dose 100 MLS/HR; Start 05/17/17 at 15:00 Diagnostic Test (Pha) 1 ea 1 ea 02 XX ; Start 05/18/17 at 02:00 Sodium Chloride (NS) 1,000 ml @ 100 mls/hr Q10H IV Last administered on 03:56; Admin Dose 100 MLS/HR; Start 05/17/17 at 15:30 Acetaminophen (Tylenol Supp) 650 mg Q6 PRN [place] PAIN OR TEMP ABOVE 38C; Start at 15:30 Miscellaneous Information 1 ea NOTE XX ; Start 05/17/17 at 16:30 Glucose (Glutose) 15 gm Q15M PRN PO DECREASED GLUCOSE; Start 05/17/17 at 16:30 Glucose (Glutose) 22.5 gm Q15M PRN PO DECREASED GLUCOSE; Start 05/17/17 at 16: 30 Dextrose (D50w Syringe) 25 ml Q15M PRN IV DECREASED GLUCOSE; Start 05/17/17 at 16:30 Dextrose (D50w Syringe) 50 ml Q15M PRN IV DECREASED GLUCOSE; Start 05/17/17 at 16:30 Glucagon (Glucagen) 1 mg Q15M PRN IM DECREASED GLUCOSE; Start 05/17/17 at 16:30 Glucose (Glutose) 15 gm Q15M PRN BUCCAL DECREASED GLUCOSE; Start 05/17/17 at 16 :30 Amlodipine Besylate (Norvasc) 5 mg BID PO Last administered on 05/22/17 09:10; Admin Dose 5 MG; Start 05/17/17 at 21:00 Carvedilol 12.5 mg 12.5 mg BID PO Last administered on 05/22/17 09:10; Admin Dose 12.5 MG; Start 05/21/17 at 10:00 Vancomycin HCl/ Sodium Chloride (Vancocin/NS) 150 ml @ 75 mls/hr Q12H IVPB Last administered on 05/22/17 06:41; Admin Dose 75 MLS/HR; Start 05/22/17 at 06: 00 Miscellaneous Information (*Rx Drug Level Order Reminder*) VANCOMYCIN TROUGH 05/22 AT 1700 ONCE ONCE XX ; Start 05/22/17 at 17:00; Stop 05/22/17 at 17:01 JIM REINOSO May 22, 2017 15:13
[2017-05-22] MEDS: CEFTRIAXONE 2 GM/50 ML (PMX) 50 ML IVPB SCH (16:35)
[2017-05-22 20:00] VITALS: BP 148/70; RESP 20
[2017-05-22] MEDS: INSULIN GLARGINE [LANtus] 3 ML PEN SC SCH (21:09)
[2017-05-23] MEDS: SOD CHLORIDE 0.9% 1,000 ML IV SCH ×4 (01:30→21:30)
[2017-05-23] MEDS: ACCU-CHEK XX SCH (02:00)
[2017-05-23 02:49] VITALS: BP 131/59; RESP 20
[2017-05-23] MEDS: VANCOMYCIN 750 MG in SOD CHLORIDE 0.9% 150 ML IVPB SCH (06:11)
[2017-05-23 06:15] LABS: BASOPHILS % 0.6 % (0.0-2.0); EOSINOPHILS # 0.1 10^3/ul (0.0-0.5); HEMATOCRIT 25.3 % (42.0-52.0); HEMOGLOBIN 8.7 g/dl (14.0-18.0); LYMPHOCYTES # 1.9 10^3/ul (0.8-2.9); LYMPHOCYTES % 26.5 % (15.0-51.0); MEAN CORPUSCULAR HEMOGLOBIN 30.6 pg (29.0-33.0); MEAN CORPUSCULAR HGB CONC 34.4 g/dl (32.0-37.0); MEAN CORPUSCULAR VOLUME 89.1 fl (82.0-101.0); MEAN PLATELET VOLUME 9.7 fl (7.4-10.4); MONOCYTE # 0.8 10^3/ul (0.3-0.9); MONOCYTES % 11.5 % (0.0-11.0); NEUTROPHILS % 60.1 % (39.0-77.0); PLATELET COUNT 357 10^3/UL (140-415); RED BLOOD COUNT 2.84 10^6/ul (4.70-6.10); RED CELL DISTRIBUTION WIDTH 13.1 % (11.5-14.5)
[2017-05-23 06:40] LABS: CREATININE 1.14 mg/dl (0.61-1.24); POTASSIUM 3.3 mmol/L (3.5-5.1)
[2017-05-23 07:22] VITALS: BP 143/69; RESP 20
[2017-05-23] MEDS: INSULIN ASPART [NOVOLOG] 3 ML PEN SC SCH ×7 (08:15→20:52)
[2017-05-23] MEDS: LEVETIRACETAM 500 MG TAB PO SCH ×2 (08:43→20:43)
[2017-05-23] MEDS: TAMSULOSIN (SR) 0.4 MG CAP PO SCH ×2 (08:43→20:43)
[2017-05-23] MEDS: GABAPENTIN 400 MG CAP PO SCH ×3 (08:43→20:43)
[2017-05-23] MEDS: GEMFIBROZIL 600 MG TAB PO SCH ×2 (08:43→20:43)
[2017-05-23] MEDS: BENAZEPRIL 20 MG TAB PO SCH ×2 (08:44→20:44)
[2017-05-23] MEDS: AMLODIPINE 5 MG TAB PO SCH ×2 (08:44→20:44)
[2017-05-23] MEDS: FAMOTIDINE 20 MG TAB PO SCH ×2 (08:44→20:44)
[2017-05-23] MEDS: ASPIRIN (EC) 81 MG TAB PO SCH (08:44)
[2017-05-23] MEDS ORDERED: POTASSIUM CHLORIDE 250 ML IVPB ONE (11:00)
[2017-05-23 13:57] VITALS: BP 141/72; RESP 20
[2017-05-23] MEDS: CEFTRIAXONE 2 GM/50 ML (PMX) 50 ML IVPB SCH (15:00)
[2017-05-23] MEDS: VANCOMYCIN 500MG/NS (PMX) 100 ML IVPB SCH (17:42)
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
[2017-05-23 20:02] VITALS: BP 176/86; RESP 20
[2017-05-23] MEDS: INSULIN GLARGINE [LANtus] 3 ML PEN SC SCH (20:55)
[2017-05-24] MEDS: ACCU-CHEK XX SCH (02:00)
[2017-05-24] MEDS: METHYLPRED. NA SUCC 250 MG in DEXTROSE 5% 50 ML IV SCH ×3 (02:30→12:09)
[2017-05-24] MEDS: SOD CHLORIDE 0.9% 1,000 ML IV SCH ×2 (04:52→07:20)
[2017-05-24] MEDS: VANCOMYCIN 500MG/NS (PMX) 100 ML IVPB SCH ×2 (05:34→17:21)
[2017-05-24 08:01] VITALS: BP 165/79; RESP 18
[2017-05-24] MEDS: GABAPENTIN 400 MG CAP PO SCH ×3 (08:15→21:00)
[2017-05-24] MEDS: INSULIN ASPART [NOVOLOG] 3 ML PEN SC SCH ×7 (08:15→21:05)
[2017-05-24] MEDS: ASPIRIN (EC) 81 MG TAB PO SCH (08:15)
[2017-05-24] MEDS: FAMOTIDINE 20 MG TAB PO SCH ×2 (08:15→21:00)
[2017-05-24] MEDS: AMLODIPINE 5 MG TAB PO SCH ×2 (08:15→21:00)
[2017-05-24] MEDS: TAMSULOSIN (SR) 0.4 MG CAP PO SCH ×2 (08:16→21:00)
[2017-05-24] MEDS: BENAZEPRIL 20 MG TAB PO SCH ×2 (08:16→21:00)
[2017-05-24] MEDS: GEMFIBROZIL 600 MG TAB PO SCH ×2 (08:16→21:00)
[2017-05-24] MEDS: LEVETIRACETAM 500 MG TAB PO SCH ×2 (08:16→21:00)
[2017-05-24 10:40] LABS: ABNORMAL IP MESSAGE 1; BASOPHILS % 0.5 % (0.0-2.0); HEMOGLOBIN 10.4 g/dl (14.0-18.0); LYMPHOCYTES # 0.6 10^3/ul (0.8-2.9); LYMPHOCYTES % 9.1 % (15.0-51.0); MEAN CORPUSCULAR HEMOGLOBIN 29.9 pg (29.0-33.0); MEAN CORPUSCULAR HGB CONC 33.5 g/dl (32.0-37.0); MEAN CORPUSCULAR VOLUME 89.1 fl (82.0-101.0); MEAN PLATELET VOLUME 9.9 fl (7.4-10.4); MONOCYTE # 0.1 10^3/ul (0.3-0.9); MONOCYTES % 0.8 % (0.0-11.0); NEUTROPHILS % 89.1 % (39.0-77.0); PLATELET COUNT 430 10^3/UL (140-415); POSITIVE DIFF @See below; RED BLOOD COUNT 3.48 10^6/ul (4.70-6.10); RED CELL DISTRIBUTION WIDTH 13.3 % (11.5-14.5); WHITE BLOOD COUNT 6.5 10^3/ul (4.8-10.8)
[2017-05-24 11:03] LABS: CALCIUM 8.7 mg/dl (8.4-10.2); CREATININE 1.05 mg/dl (0.61-1.24); POTASSIUM 3.9 mmol/L (3.5-5.1)
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
[2017-05-24 14:00] VITALS: BP 169/79; RESP 20
[2017-05-24] MEDS: CEFTRIAXONE 2 GM/50 ML (PMX) 50 ML IVPB SCH (15:21)
[2017-05-24] MEDS: HYDROCODONE/APAP (5/325) TAB PO PRN (16:52)
[2017-05-24 20:04] VITALS: BP 172/81; RESP 20
[2017-05-24 20:56] VITALS: BP 146/67
[2017-05-24] MEDS: INSULIN GLARGINE [LANtus] 3 ML PEN SC SCH (21:04)
[2017-05-25 01:38] VITALS: BP_SYST 143; BP_SYST 173; BP_DIAS 81; RESP 20
[2017-05-25] MEDS: ACCU-CHEK XX SCH (02:51)
[2017-05-25 05:04] VITALS: BP 135/74; PULSE 72
[2017-05-25 05:42] LABS: HEMOGLOBIN 9.3 g/dl (14.0-18.0); LYMPHOCYTES # 0.8 10^3/ul (0.8-2.9); LYMPHOCYTES % 9.6 % (15.0-51.0); MEAN CORPUSCULAR HEMOGLOBIN 30.8 pg (29.0-33.0); MEAN CORPUSCULAR HGB CONC 34.4 g/dl (32.0-37.0); MEAN CORPUSCULAR VOLUME 89.4 fl (82.0-101.0); MEAN PLATELET VOLUME 9.7 fl (7.4-10.4); MONOCYTE # 0.3 10^3/ul (0.3-0.9); MONOCYTES % 3.9 % (0.0-11.0); NEUTROPHILS % 85.8 % (39.0-77.0); PLATELET COUNT 432 10^3/UL (140-415); RED BLOOD COUNT 3.02 10^6/ul (4.70-6.10); RED CELL DISTRIBUTION WIDTH 13.1 % (11.5-14.5); WHITE BLOOD COUNT 8.4 10^3/ul (4.8-10.8)
[2017-05-25] MEDS: VANCOMYCIN 500MG/NS (PMX) 100 ML IVPB SCH ×2 (05:54→17:39)
[2017-05-25 05:56] LABS: ALBUMIN 2.8 g/dl (3.3-4.9); ALBUMIN/GLOBULIN RATIO 0.84; CALCIUM 8.5 mg/dl (8.4-10.2); CREATININE 1.19 mg/dl (0.61-1.24); POTASSIUM 3.8 mmol/L (3.5-5.1); TOTAL PROTEIN 6.1 g/dl (6.1-8.1)
[2017-05-25 06:31] LABS: HERPES SIMPLEX 1 DNA NOT DETECTED; HERPES SIMPLEX 2 DNA NOT DETECTED; HERPES SIMPLEX PCR SOURCE CEREBROSPINAL FLUID
[2017-05-25] MEDS: INSULIN ASPART [NOVOLOG] 3 ML PEN SC SCH ×7 (07:58→21:00)
[2017-05-25 08:00] VITALS: BP 147/70; RESP 22
[2017-05-25] MEDS: TAMSULOSIN (SR) 0.4 MG CAP PO SCH ×2 (09:36→21:16)
[2017-05-25] MEDS: GEMFIBROZIL 600 MG TAB PO SCH ×2 (09:36→21:17)
[2017-05-25] MEDS: BENAZEPRIL 20 MG TAB PO SCH ×2 (09:36→21:17)
[2017-05-25] MEDS: GABAPENTIN 400 MG CAP PO SCH ×3 (09:36→21:16)
[2017-05-25] MEDS: LEVETIRACETAM 500 MG TAB PO SCH ×2 (09:36→21:16)
[2017-05-25] MEDS: FAMOTIDINE 20 MG TAB PO SCH ×2 (09:37→21:17)
[2017-05-25] MEDS: AMLODIPINE 5 MG TAB PO SCH ×2 (09:37→21:17)
[2017-05-25] MEDS: ASPIRIN (EC) 81 MG TAB PO SCH (09:37)
--- NOTE | 2017-05-25 14:00 | CONS ---
DATE OF SERVICE: 05/24/2017 HISTORY OF PRESENT ILLNESS: The patient is a 66-year-old male that we admitted son. The patient had lumbar tap where he had . We just started him on IV Solu-Medrol. PHYSICAL EXAMINATION: GENERAL: The patient is alert, awake, looks confused. HEART: . LUNGS: Equal breath sounds. ABDOMEN: Soft, , no tenderness. NEUROLOGIC: Motor decreased hand whipper. Inaudible. ASSESSMENT AND PLAN: 1. 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 We started him on IV steroid and will see how the patient responds to that. 2. History of hypertension. The patient on benazepril, carvedilol. 3. secondary to inflammatory neuropathy. The patient started on steroid. Will continue the steroid for 3 days and then will give him and see how he responds to that. 4. Underlying memory disorder, which we will followup the patient with memory examination when he is stable. Again, thank you for asking me to the patient with you. Dictated By: Luis Enrique Daly MD /[email or web address] /Document#: [id number]
--- NOTE | 2017-05-25 14:02 | CONS ---
DATE OF SERVICE: 05/24/2017 SUBJECTIVE: The patient is a 66-year-old lady who was admitted to the hospital with acute unstable chronic encephalopathy, unresponsive. The patient has PRODUCTION CONTROL TECHNOLOGIST shunt. Seen by neuro surgeon. Lumbar puncture is done, as well, which shows protein 162, white cell count 37, RBC 6, glucose 62. OBJECTIVE: GENERAL: The patient is awake, following simple commands. NEURO: Cranial nerve exam 2, pupils equal to light, reactive to light; 3, 4, and 6 extraocular muscles intact; 5 equal sensation to face; 7 symmetrical face. Cranial nerves are difficult to assess. Moving both upper and lower extremities. Sensation, gait, coordination included assist. HEART: Regular rate and rhythm. LUNGS: Equal breath sounds. ASSESSMENT AND PLAN: 1. The patient is 66 years old status post craniotomy with hydrocephalus. 2. Status post PRODUCTION CONTROL TECHNOLOGIST shunt. No sign of shunt obstruction or infection at this point. 3. Underlying seizure activity followed with observation with medication, as well as seizure precautions. 4. Abnormal results of the lumbar puncture. again with restrictive underlying infection. The high protein could be associated with neuropathy with possibility of Kellie-Lopez. We recommend to give her 3 days of corticosteroid and see how she responds to that, followed by tapering dose. Again, thank you for asking me to see the patient with you. Dictated By: Luis Enrique Daly MD /cesar/mata /Document#: [id number]
--- NOTE | 2017-05-25 14:19 | NEURPT ---
DATE: 05/22/2017 REFERRING PHYSICIAN: Dr. Navarrete and Dr. Choi. PROCEDURE: EEG done using 10/20 international electrode placement system with photic stimulation. Bilateral occipital hemispheres showed theta and delta waves 4-6 Hz, medium size, slow amplitude, symmetrical bilaterally. Photic stimulation done did not elicit drive. Sharp waves recorded of the right latter day area. IMPRESSION: This abnormal electroencephalogram showed sharp waves in latter day on the right, generalized slowing, consistent with a history of postictal status. Followup EEG may be needed. Dictated By: Luis Enrique Daly MD /cesar/lonny /Document#: [id number]
--- NOTE | 2017-05-25 14:21 | CONS ---
DATE OF ADMISSION: 05/19/2017 DATE OF CONSULTATION: 05/23/2017 HISTORY OF PRESENT ILLNESS: The patient is 66 years old, status post craniotomy, ventriculoperitoneal shunt, seizure. The patient has episodes of unresponsiveness, decrease in mini mental status. EEG was ordered, as well as a consult. PHYSICAL EXAMINATION: GENERAL: Today the patient is awake, alert, oriented, looks confused. HEART: Regular rate and rhythm. LUNGS: Equal breath sounds. NEUROLOGIC: Cranial nerve 2: Pupils equal on both sides, reactive to light. Cranial nerves 3, 4 and 6: Extraocular muscles intact. No nystagmus. Cranial nerve 5: Equal sensation to face. Cranial nerve 7: Symmetrical face. Cranial nerve 8: Decreased hearing bilaterally. Cranial nerves 9 and 10: Elevates palate. Cranial nerve 11: Elevates shoulder 5/5. Cranial nerve 12: With straight tongue. Motor exam: Moving both upper and lower extremity against gravity 4+/5. Sensation: Glove-stocking distribution intact to light touch and temperature. Coordination: Calsle-sc-qora is intact. ABDOMEN: Flat, relaxed, nondistended, nontender. ASSESSMENT AND PLAN: 1. Patient is 66 years old with underlying decreased mini mental status. Suspect underlying postictal status. Follow up with EEG. 2. Underlying ventriculoperitoneal shunt. Will follow up the patient with neurosurgeon; however, CT scan does not show sign of shunt obstruction. 3. Aphasia, probably secondary to encephalopathy before. Will follow up the patient with mini mental status when stable. 4. I started the patient on Keppra 500 mg twice a day for seizure activity. This patient's EEG showed postictal status. Again, thank you for asking me to see the patient with you. Dictated By: Luis Enrique Daly MD /[email or web address]/lonny /Document#: [id number]
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
[2017-05-25] MEDS: hydrALAzine 20 MG INJ IV PRN (15:44)
[2017-05-25] MEDS: CEFTRIAXONE 2 GM/50 ML (PMX) 50 ML IVPB SCH (15:44)
[2017-05-25 15:50] VITALS: BP 171/104; RESP 22
[2017-05-25 17:17] LABS: VDRL, CSF NON-REACTIVE
[2017-05-25 20:00] VITALS: BP 129/73; RESP 18
[2017-05-25] MEDS: INSULIN GLARGINE [LANtus] 3 ML PEN SC SCH (21:22)
[2017-05-26 02:00] VITALS: BP 133/65; RESP 18
[2017-05-26] MEDS: ACCU-CHEK XX SCH (02:00)
[2017-05-26] MEDS: VANCOMYCIN 500MG/NS (PMX) 100 ML IVPB SCH (05:44)
[2017-05-26 05:51] LABS: BASOPHILS % 0.2 % (0.0-2.0); EOSINOPHILS % 0.1 % (0.0-7.0); HEMATOCRIT 23.9 % (42.0-52.0); LYMPHOCYTES # 1.6 10^3/ul (0.8-2.9); LYMPHOCYTES % 15.9 % (15.0-51.0); MEAN CORPUSCULAR HEMOGLOBIN 30.1 pg (29.0-33.0); MEAN CORPUSCULAR HGB CONC 33.5 g/dl (32.0-37.0); MEAN CORPUSCULAR VOLUME 89.8 fl (82.0-101.0); MEAN PLATELET VOLUME 9.6 fl (7.4-10.4); MONOCYTE # 1.1 10^3/ul (0.3-0.9); MONOCYTES % 10.6 % (0.0-11.0); NEUTROPHILS % 72.5 % (39.0-77.0); PLATELET COUNT 365 10^3/UL (140-415); RED BLOOD COUNT 2.66 10^6/ul (4.70-6.10); RED CELL DISTRIBUTION WIDTH 13.6 % (11.5-14.5); WHITE BLOOD COUNT 9.9 10^3/ul (4.8-10.8)
[2017-05-26 06:27] LABS: CALCIUM 8.8 mg/dl (8.4-10.2); CREATININE 1.19 mg/dl (0.61-1.24); POTASSIUM 3.7 mmol/L (3.5-5.1)
[2017-05-26 06:31] LABS: MAGNESIUM 2.1 mg/dl (1.7-2.5); PHOSPHORUS 4.1 mg/dl (2.5-4.9)
[2017-05-26 07:47] VITALS: BP 156/72; RESP 22
[2017-05-26] MEDS: INSULIN ASPART [NOVOLOG] 3 ML PEN SC SCH ×7 (07:59→21:00)
[2017-05-26] MEDS: ASPIRIN (EC) 81 MG TAB PO SCH (08:51)
[2017-05-26] MEDS: TAMSULOSIN (SR) 0.4 MG CAP PO SCH ×2 (08:51→20:54)
[2017-05-26] MEDS: LEVETIRACETAM 500 MG TAB PO SCH ×2 (08:51→20:55)
[2017-05-26] MEDS: GEMFIBROZIL 600 MG TAB PO SCH ×2 (08:51→20:55)
[2017-05-26] MEDS: BENAZEPRIL 20 MG TAB PO SCH ×2 (08:51→20:55)
[2017-05-26] MEDS: GABAPENTIN 400 MG CAP PO SCH ×4 (08:51→20:55)
[2017-05-26] MEDS: FAMOTIDINE 20 MG TAB PO SCH ×2 (08:51→20:56)
[2017-05-26] MEDS: AMLODIPINE 5 MG TAB PO SCH ×2 (08:52→20:56)
[2017-05-26 11:40] LABS: HEMATOCRIT 25.1 % (42.0-52.0); HEMOGLOBIN 8.2 g/dl (14.0-18.0)
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
--- NOTE | 2017-05-26 13:51 | PN ---
DATE: 05/26/2017 SUBJECTIVE DATA: No acute events overnight. The patient is sleeping, arousable, in no distress. He follows commands. No fevers. OBJECTIVE DATA: VITAL SIGNS: Temperature 97.6, pulse 69, respirations 22, blood pressure 156/72, and saturation 97 percent. LABORATORY AND DIAGNOSTIC DATA: WBC 9.9, H and H 8 and 23.9, platelets 365, no shift, no bands. BUN 22, creatinine 1.19. MICROBIOLOGY: Blood cultures remain negative. CSF culture negative. Urine culture negative. ANTIMICROBIAL: Patient is on IV vancomycin and Rocephin. PHYSICAL EXAMINATION: GENERAL: Well-developed, ill-appearing, elderly man, who is in no distress. HEENT: Head atraumatic, normocephalic. Sclerae anicteric. Buccal mucosa dry. NECK: Supple. CHEST: Rise symmetrical. Breath sounds diminished at the bases. HEART: S1, S2. ABDOMEN: Soft, bowel sounds present. EXTREMITIES: No cyanosis. ASSESSMENT: 1. Acute on chronic encephalopathy, status post lumbar puncture that revealed no evidence of meningitis and cerebrospinal fluid (CSF) cultures being negative, brain CT had been negative. 2. History of traumatic brain injury, status post intracranial hemorrhage with DIRECTOR OF PROMOTIONS shunt placement, the patient is being seen by Dr. Knox. 3. Status post systemic inflammatory response syndrome on admission. 4. Poorly controlled diabetes. 5. Hypertension. PLAN: 1. The patient remains stable. 2. Again, all cultures have been negative. 3. CSF culture negative. 4. CSF for HSV PCR also negative. 5. He is on vancomycin and Rocephin, day number 10. He is going to be seen by Dr. Hanley later on today who will give final recommendations in regards to his antibiotics. Dictated By: Perfecto Andrews NP /cesar/viji /Document#: [id number]
[2017-05-26] MEDS: CEFTRIAXONE 2 GM/50 ML (PMX) 50 ML IVPB SCH (15:36)
[2017-05-26 16:53] VITALS: BP 121/66; RESP 20
[2017-05-26 20:10] VITALS: BP 146/76; RESP 20
[2017-05-26] MEDS: INSULIN GLARGINE [LANtus] 3 ML PEN SC SCH (22:07)
[2017-05-26] MEDS: ACETAMINOPHEN 325 MG TAB PO PRN (23:07)
[2017-05-27] MEDS: ACCU-CHEK XX SCH (02:00)
[2017-05-27 02:20] VITALS: BP 149/67; RESP 20
[2017-05-27] MEDS ORDERED: VANCOMYCIN 1 GM in NS 250 ML IVPB SCH (03:00)
[2017-05-27 06:02] LABS: BASOPHILS % 0.4 % (0.0-2.0); EOSINOPHILS # 0.1 10^3/ul (0.0-0.5); HEMATOCRIT 24.6 % (42.0-52.0); HEMOGLOBIN 8.3 g/dl (14.0-18.0); LYMPHOCYTES # 1.8 10^3/ul (0.8-2.9); LYMPHOCYTES % 20.2 % (15.0-51.0); MEAN CORPUSCULAR HEMOGLOBIN 30.6 pg (29.0-33.0); MEAN CORPUSCULAR HGB CONC 33.7 g/dl (32.0-37.0); MEAN CORPUSCULAR VOLUME 90.8 fl (82.0-101.0); MEAN PLATELET VOLUME 9.5 fl (7.4-10.4); MONOCYTES % 11.1 % (0.0-11.0); NEUTROPHILS % 66.9 % (39.0-77.0); PLATELET COUNT 348 10^3/UL (140-415); RED BLOOD COUNT 2.71 10^6/ul (4.70-6.10); RED CELL DISTRIBUTION WIDTH 13.3 % (11.5-14.5)
--- NOTE | 2017-05-27 06:28 | CONS ---
DATE OF ADMISSION: 05/19/2017 DATE OF CONSULTATION: 05/27/2017 HISTORY OF PRESENT ILLNESS: Patient is a 66-year-old male who has a past medical history of traumatic brain injury, intracranial hemorrhage, VIDEO ENGINEER shunt, chronic encephalopathy, for which the patient has a lumbar puncture which shows protein is 120 and white cell count is 38, red blood cells less than 5. The patient has an EEG. PHYSICAL EXAMINATION: NEUROLOGIC: Patient with memory difficulty; however, on exam today, the patient can follow simple commands. Cranial nerves 2 through 12 intact. Motor exam: Decreased right hand rib builder. Sensation: for light touch and temperature. Coordination: [id number] is intact. HEART: Has regular rate and rhythm. LUNGS: Equal breath sounds. ABDOMEN: Soft, relaxed, nondistended. No tenderness. ASSESSMENT AND PLAN: 1. The patient is a 66-year-old with underlying decrease in mental status, probably secondary to postictal status. Will follow up with the patient with an EEG, adjust his medication for seizure disorder. 2. Status post underlying ventriculoperitoneal shunt, for which the patient is followed by neurosurgeon Dr. Rubén Knox. CT scan showed no obstruction. 3. Aphasia, probably secondary to chronic encephalopathy, for which the patient might follow up with the speech therapy for aphasia and speech training and follow up with mini mental status. 4. Continue the patient's Keppra 500 mg twice a day for seizure precaution and keep the patient under seizure precaution. 5. Abnormal protein in his CSF, for which I tried 1 dose of cortisone where the patient got psychotic and decreased mini mental, which worsened his condition, so we stopped it and will follow up the patient with the clinical picture, see how the patient responds to the physical therapy and rehab, for which I recommend him to be in acute rehab facility, and see how the patient responds to that. 6. The fact that the patient was admitted with a fever and chills with elevated lactic acid with white cell count 38 in his CSF raises the possibility of viral infection versus fungus, for which the patient is followed by Infectious Disease, in which there is no growing of any organism up to now, for which the patient has a PCR herpes which is so far negative. Again, thank you for asking me to see the patient with you. Dictated By: Luis Enrique Daly MD /cesar/ludwig /Document#: [id number]
[2017-05-27 06:31] LABS: MAGNESIUM 2.1 mg/dl (1.7-2.5); PHOSPHORUS 4.3 mg/dl (2.5-4.9)
[2017-05-27 06:35] LABS: CALCIUM 8.4 mg/dl (8.4-10.2); CREATININE 1.18 mg/dl (0.61-1.24); POTASSIUM 3.4 mmol/L (3.5-5.1)
[2017-05-27 07:39] VITALS: BP 146/66; RESP 18
[2017-05-27] MEDS: INSULIN ASPART [NOVOLOG] 3 ML PEN SC SCH ×7 (08:15→21:10)
[2017-05-27] MEDS: FAMOTIDINE 20 MG TAB PO SCH ×3 (09:00→21:02)
[2017-05-27] MEDS: AMLODIPINE 5 MG TAB PO SCH ×3 (09:00→21:02)
[2017-05-27] MEDS: GABAPENTIN 400 MG CAP PO SCH ×4 (09:00→21:01)
[2017-05-27] MEDS: ASPIRIN (EC) 81 MG TAB PO SCH ×2 (09:00→11:35)
[2017-05-27] MEDS: GEMFIBROZIL 600 MG TAB PO SCH ×3 (09:00→21:01)
[2017-05-27] MEDS: TAMSULOSIN (SR) 0.4 MG CAP PO SCH ×3 (09:00→21:01)
[2017-05-27] MEDS: LEVETIRACETAM 500 MG TAB PO SCH ×3 (09:00→21:01)
[2017-05-27] MEDS: BENAZEPRIL 20 MG TAB PO SCH ×3 (09:00→21:02)
[2017-05-27 10:01] VITALS: BP 138/70; PULSE 70; RESP 22
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
[2017-05-27 11:40] VITALS: BP 169/83; PULSE 74
[2017-05-27 13:53] VITALS: BP 150/77; RESP 18
--- NOTE | 2017-05-27 14:53 | RADRPT ---
PROCEDURE: XR Chest. CLINICAL INDICATION: Shortness of breath TECHNIQUE: Single frontal chest x-ray. COMPARISON: Chest x-ray 05/17/2017 FINDINGS: Right internal jugular central venous catheter tip overlies the right atrium. Left upper thoracic postsurgical changes are similar to prior. Left lower lobe atelectasis. The cardiomediastinal silhouette is within normal limit size No evidence of pneumothorax or pleural effusion. Aortic atherosclerotic calcifications. Degenerative changes to the thoracic spine are seen. IMPRESSION: No significant change. Left lower lobe atelectasis. RPTAT: AA .Keyshawn Castillo MD, Date Time Electronically viewed and signed by .Keyshawn Castillo MD, on 05/27/2017 14:53 .T/
[2017-05-27] MEDS: CEFTRIAXONE 2 GM/50 ML (PMX) 50 ML IVPB SCH (15:36)
--- NOTE | 2017-05-27 17:38 | PN ---
DATE: 05/27/2017 SUBJECTIVE DATA: No acute changes. The patient is more awake today. No fevers. Looks comfortable. is at bedside. LABORATORY: WBC 9, no shift, no bands. BUN 23, creatinine 1.18. DIAGNOSTICS: Chest x-ray this morning revealed no significant change, left lower lobe atelectasis. PHYSICAL EXAMINATION: GENERAL: Obese, well-developed, chronically ill-appearing, elderly man who is sleeping in no distress. HEENT: Head is atraumatic and normocephalic. Sclerae are anicteric. Buccal mucosa is pink and dry. NECK: Supple. LUNGS: Chest rise is symmetrical. Breath sounds are clear. Diminished at bases. HEART: S1, S2. ABDOMEN: Soft. Bowel sounds are present. EXTREMITIES: Without cyanosis. ASSESSMENT: 1. Status post systemic inflammatory response syndrome. 2. Resolving encephalopathy possibly secondary to seizures. No evidence of meningitis per LP with CSF cultures being negative. 3. History of traumatic brain injury status post ventriculoperitoneal shunt. 4. Hypertension. 5. Obesity. PLAN: The patient remains stable. All cultures negative. We are going to discontinue antibiotics and observe him. The above was discussed with Dr. Hanley. Dictated By: Perfecto Andrews NP /cesar/mata /Document#: [id number]
[2017-05-27 19:42] VITALS: BP 151/72; RESP 20
[2017-05-27] MEDS ORDERED: INSULIN GLARGINE [LANtus] 3 ML PEN SC SCH (21:00)
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
[2017-05-28 01:28] VITALS: BP 150/77; RESP 20
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
[2017-05-28] MEDS: ACCU-CHEK XX SCH (02:37)
[2017-05-28 06:09] LABS: BASOPHILS % 0.3 % (0.0-2.0); EOSINOPHILS # 0.1 10^3/ul (0.0-0.5); EOSINOPHILS % 1.1 % (0.0-7.0); HEMATOCRIT 24.7 % (42.0-52.0); HEMOGLOBIN 8.6 g/dl (14.0-18.0); LYMPHOCYTES # 1.8 10^3/ul (0.8-2.9); LYMPHOCYTES % 19.3 % (15.0-51.0); MEAN CORPUSCULAR HEMOGLOBIN 31.2 pg (29.0-33.0); MEAN CORPUSCULAR HGB CONC 34.8 g/dl (32.0-37.0); MEAN CORPUSCULAR VOLUME 89.5 fl (82.0-101.0); MEAN PLATELET VOLUME 9.7 fl (7.4-10.4); MONOCYTE # 0.8 10^3/ul (0.3-0.9); MONOCYTES % 8.2 % (0.0-11.0); NEUTROPHILS % 70.6 % (39.0-77.0); PLATELET COUNT 326 10^3/UL (140-415); RED BLOOD COUNT 2.76 10^6/ul (4.70-6.10); RED CELL DISTRIBUTION WIDTH 13.2 % (11.5-14.5); WHITE BLOOD COUNT 9.4 10^3/ul (4.8-10.8)
[2017-05-28 06:46] LABS: MAGNESIUM 2.2 mg/dl (1.7-2.5)
[2017-05-28 06:52] LABS: CALCIUM 8.5 mg/dl (8.4-10.2); CREATININE 1.18 mg/dl (0.61-1.24); POTASSIUM 3.2 mmol/L (3.5-5.1)
[2017-05-28 07:36] VITALS: BP 151/72; RESP 16
[2017-05-28] MEDS: INSULIN ASPART [NOVOLOG] 3 ML PEN SC SCH ×3 (08:15→12:14)
[2017-05-28] MEDS: FAMOTIDINE 20 MG TAB PO SCH (08:29)
[2017-05-28] MEDS: TAMSULOSIN (SR) 0.4 MG CAP PO SCH (08:29)
[2017-05-28] MEDS: GABAPENTIN 400 MG CAP PO SCH ×2 (08:29→13:29)
[2017-05-28] MEDS: ASPIRIN (EC) 81 MG TAB PO SCH (08:30)
[2017-05-28] MEDS: GEMFIBROZIL 600 MG TAB PO SCH (08:30)
[2017-05-28] MEDS: LEVETIRACETAM 500 MG TAB PO SCH (08:30)
[2017-05-28] MEDS: BENAZEPRIL 20 MG TAB PO SCH (08:32)
[2017-05-28] MEDS: AMLODIPINE 5 MG TAB PO SCH (08:32)
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
--- NOTE | 2017-05-28 11:23 | PDOCDIS ---
Discharge Instructions CONDITION Patient Condition: Stable HOME CARE INSTRUCTIONS: Special Diet: diabetic ACTIVITY: Activity Restrictions: No Restrictions FOLLOW UP/APPOINTMENTS Follow-up Plan Follow-up with neurology as an outpatient within 1-2 weeks regarding newly diagnosed seizure disorder, known traumatic brain injury, status post SURGICAL SCHEDULER shunt. Physical therapy to continue at snf facility Adjust insulin regimen as needed. AUGUST ADAN May 28, 2017 11:23
[2017-05-28] MEDS: POTASSIUM CHLORIDE (SR) 20 MEQ TAB PO SCH ×2 (11:46→15:03)
[2017-05-28] MEDS ORDERED: INSULIN ASPART [NOVOLOG] 3 ML PEN SC SCH (12:15)
[2017-05-28 14:14] VITALS: BP 166/80; RESP 18
[2017-05-28] MEDS: hydrALAzine 20 MG INJ IV PRN (14:56)
--- NOTE | 2017-05-28 14:57 | CONS ---
Date/Time of Note Date/Time of Note DATE: 05/28/17 TIME: 14:56 Assessment/Plan Assessment/Plan Chief Complaint/Hosp Course SUBJECTIVE DATA: No acute changes. Alert, sitting up in a chair, no fevers PHYSICAL EXAMINATION: GENERAL: Obese, well-developed, chronically ill-appearing, elderly man who is sleeping in no distress. HEENT: Head is atraumatic and normocephalic. Sclerae are anicteric. Buccal mucosa is pink and dry. NECK: Supple. LUNGS: Chest rise is symmetrical. Breath sounds are clear. Diminished at bases. HEART: S1, S2. ABDOMEN: Soft. Bowel sounds are present. EXTREMITIES: Without cyanosis. ASSESSMENT: 1. Status post systemic inflammatory response syndrome. 2. Resolved encephalopathy possibly secondary to seizures. No evidence of meningitis per LP with CSF cultures being negative. 3. History of traumatic brain injury status post ventriculoperitoneal shunt. 4. Hypertension. 5. Obesity. PLAN: The patient remains stable. All cultures negative. Ok dc home off abx DW staff Problems: Consultation Date/Type/Reason Admit Date/Time May 19, 2017 at 15:42 Initial Consult Date Type of Consultation: ID Exam/Review of Systems Vital Signs Vitals Vital Signs Date Time Temp Pulse Resp B/P Pulse Ox O2 Delivery O2 Flow Rate FiO2 05/28/17 14:14 98.4 85 18 166/80 98 05/27/17 11:47 Nasal Cannula 05/27/17 10:01 2.0 Intake and Output 05/27/17 05/27/17 05/28/17 15:00 23:00 07:00 Intake Total 1010 ml 240 ml Balance 1010 ml 240 ml Results Result Diagram: 05/28/17 0525 05/28/17 0944 Results 24 hrs Laboratory Tests Test 05/27/17 17:45 05/27/17 21:04 05/28/17 02:34 05/28/17 05:25 Bedside Glucose 173 195 96 White Blood Count 9.4 Red Blood Count 2.76 L Hemoglobin 8.6 L Hematocrit 24.7 L Mean Corpuscular Volume 89.5 Mean Corpuscular Hemoglobin 31.2 Mean Corpuscular Hemoglobin Concent 34.8 Red Cell Distribution Width 13.2 Platelet Count 326 Mean Platelet Volume 9.7 Neutrophils % 70.6 Lymphocytes % 19.3 Monocytes % 8.2 Eosinophils % 1.1 Basophils % 0.3 Nucleated Red Blood Cells % 0.0 Neutrophils # (Manual) 6.6 Lymphocytes # 1.8 Monocytes # 0.8 Eosinophils # 0.1 Basophils # 0.0 Nucleated Red Blood Cells # 0.0 Sodium Level 137 Potassium Level 3.2 L Chloride Level 114 H Carbon Dioxide Level 20 L Anion Gap 6 L Blood Urea Nitrogen 20 Creatinine 1.18 Glucose Level 71 Calcium Level 8.5 Phosphorus Level 4.0 Magnesium Level 2.2 Test 05/28/17 08:13 05/28/17 08:37 05/28/17 08:56 05/28/17 09:44 Bedside Glucose 49 *L 81 113 Glucose Level 112 # Test 05/28/17 12:05 Bedside Glucose 187 Medications Medications Current Medications Ondansetron HCl (Zofran Tab) 4 mg Q6H PRN PO NAUSEA AND/OR VOMITING; Start at 05:00 Acetaminophen (Tylenol Tab) 650 mg Q6H PRN PO PAIN LEVEL 1-3 OR FEVER Last administered on 05/26/17 23:07; Admin Dose 650 MG; Start 05/17/17 at 05:00 Acetaminophen/ Hydrocodone Bitart ([place] (5/325)) 1 tab Q6H PRN PO MODERATE PAIN LEVEL 4-6 Last administered on 05/24/17 16:52; Admin Dose 1 TAB; Start at 05:00 Docusate Sodium (Colace) 100 mg Q12H PRN PO CONSTIPATION; Start 05/17/17 at 05: 00 Famotidine (Pepcid) 20 mg Q12 PO Last administered on 05/28/17 08:29; Admin Dose 20 MG; Start 05/17/17 at 09:00 Aspirin (Halfprin) 81 mg DAILY PO Last administered on 05/28/17 08:30; Admin Dose 81 MG; Start 05/17/17 at 09:00 Benazepril HCl (Lotensin) 20 mg BID PO Last administered on 05/28/17 08:32; Admin Dose 20 MG; Start 05/17/17 at 09:00 Gabapentin (Neurontin) 800 mg TID PO Last administered on 05/28/17 13:29; Admin Dose 800 MG; Start 05/17/17 at 09:00 Gemfibrozil (Lopid) 600 mg BID PO Last administered on 05/28/17 08:30; Admin Dose 600 MG; Start 05/17/17 at 09:00 Hydralazine HCl (Apresoline) 10 mg Q4H PRN IV SBP > 160 Last administered on 15:44; Admin Dose 10 MG; Start 05/17/17 at 06:30 Tamsulosin HCl (Flomax) 0.4 mg BID PO Last administered on 05/28/17 08:29; Admin Dose 0.4 MG; Start 05/17/17 at 12:00 Diagnostic Test (Pha) (Accu-Chek) 1 ea 02 XX Last administered on 05/28/17 02: 37; Admin Dose 1 EA; Start 05/18/17 at 02:00 Acetaminophen (Tylenol Supp) 650 mg Q6 PRN [place] PAIN OR TEMP ABOVE 38C; Start at 15:30 Miscellaneous Information 1 ea NOTE XX ; Start 05/17/17 at 16:30 Glucose (Glutose) 15 gm Q15M PRN PO DECREASED GLUCOSE; Start 05/17/17 at 16:30 Glucose (Glutose) 22.5 gm Q15M PRN PO DECREASED GLUCOSE Last administered on 08:19; Admin Dose 22.5 GM; Start 05/17/17 at 16:30 Dextrose (D50w Syringe) 25 ml Q15M PRN IV DECREASED GLUCOSE Last administered on 05/26/17 12:19; Admin Dose 25 ML; Start 05/17/17 at 16:30 Dextrose (D50w Syringe) 50 ml Q15M PRN IV DECREASED GLUCOSE; Start 05/17/17 at 16:30 Glucagon (Glucagen) 1 mg Q15M PRN IM DECREASED GLUCOSE; Start 05/17/17 at 16:30 Glucose (Glutose) 15 gm Q15M PRN BUCCAL DECREASED GLUCOSE; Start 05/17/17 at 16 :30 Amlodipine Besylate (Norvasc) 5 mg BID PO Last administered on 05/28/17 08:32; Admin Dose 5 MG; Start 05/17/17 at 21:00 Carvedilol (Coreg) 12.5 mg BID PO Last administered on 05/28/17 08:31; Admin Dose 12.5 MG; Start 05/21/17 at 10:00 Levetiracetam (Keppra) 500 mg BID PO Last administered on 05/28/17 08:30; Admin Dose 500 MG; Start 05/23/17 at 09:00 Insulin Glargine (Lantus) 12 unit QHS SC ; Start 05/28/17 at 21:00 Potassium Chloride (Klor-Con 20) 40 meq Q4H PO Last administered on 05/28/17 11 :46; Admin Dose 40 MEQ; Start 05/28/17 at 11:30; Stop 05/28/17 at 15:31 ONEL VALDOVINOS NP May 28, 2017 14:57
[2017-05-28 15:04] VITALS: BP 142/69; PULSE 79
--- NOTE | 2017-05-28 16:52 | DS ---
Date/Time of Note Date/Time of Note DATE: 05/28/17 TIME: 15:50 Discharge Summary Admission/Discharge Info Admit Date/Time May 19, 2017 at 15:42 Discharge Date/Time May 28, 2017 Discharge Diagnosis Acute on chronic encephalopathy secondary to subclinical/absence seizures Status post traumatic head injury remotely Status post CIAIO COUNTER MOLDER shunt placement in 2008 Status post fall Uncontrolled diabetes mellitus Subclinical/absence Seizures Possible aseptic/viral meningitis Hypertension Consults Neurology, Dr. Daly Neurosurgery, Dr Knox Infectious Disease, Dr Hanley Procedures Lumbar puncture EEG CAT scan head 2 Scan abdomen and pelvis 1 Hx of Present Illness Chief complaint: Fevers, disorientation History of presenting illness: 66-year-old male with hypertension, diabetes mellitus uncontrolled, status post head trauma years ago requiring ultimately CIAIO COUNTER MOLDER shunt placement for for obstructive hydrocephalus, chronic urinary incontinence alternating with episodes of retention, who apparently has been declining over the past year and half. According to the family, after rehabilitation post head trauma years ago, patient got to a point where he was able to ambulate with a cane, he was much more oriented and independent. But lately over the past year and half, he has been having more episodes of disorientation at least twice a week, they have noticed that he became more urinary incontinent and sometimes bowel incontinence. Over the past 5 days, the patient seems to have acutely decompensated further, he had an episode of fall and according to the patient when he falls he does not catch himself, he fell straight chest to the floor and abdomen to the floor. He was seen in the emergency department ruled out for any serious trauma and subsequently discharged home. Over the past 2-3 days, patient was noted to have episodes of fevers up to 103 at home, increased lethargy, more episodes of severe disorientation, urinary incontinence, bowel incontinence. This morning he was noted to be nauseous and vomiting, not tolerating p.o. He is also noted to be febrile to 102, he is being given Tylenol, cultures have been redrawn, he is on broad-spectrum antibiotics vancomycin and Rocephin. CAT scan of the abdomen and pelvis is pending, CAT scan of the head was stable. I have consulted neurosurgery to review CAT scans and make sure that the CIAIO COUNTER MOLDER shunt is patent. Infectious workup pending. Patient may need insertion of a Cullen catheter, however in the afternoon he did have a significant urine output. He has been restarted on Flomax. I have updated the family at bedside, they are very concerned, their questions have been answered, I have explained to them that currently we do not have a clear picture of the etiology for the patient's current symptom however he is being worked up for infectious etiology and covered with broad-spectrum antibiotic. Patient himself, answers simple question, he is clearly disoriented and keeps asking to go home. He is also unsteady Hospital Course Upon admission at [facility], patient was noted to be febrile and disoriented. His lactic acid was slightly elevated at first. He was started on broad-spectrum antibiotics including Rocephin and vancomycin. The source of his infection was unclear, his white blood cell count was barely elevated to normal. He did have skin abrasion from his last fall with slight erythema around the abrasions, otherwise blood cultures, urine cultures remain negative. Patient became afebrile, white blood cell count was within normal, however his mental status was not improving much. Still encephalopathic and ended up having an episode of unresponsiveness. At that time a lumbar puncture was done with CSF sent for cell count, bacterial and fungal cultures, viral PCR' s including HSV and West Nile Virus. All PCR's came back negative however West Nile virus antibodies were above range per report today. On EEG patient was noted to have a right temporal focus of seizures, he may have had either subclinical seizures versus absence seizures as family now is describing episodes of "staring" while he is at home. He has been started on Keppra, all antibiotics are discontinued. He remains afebrile. White blood cell count within normal. He is much more alert today, he has started physical therapy and ambulating. He is tolerating p.o. Also a diabetic, hemoglobin A1c on admission 11. He is noncompliant with diet according to family, it is unclear if he is taking his insulin and or oral hypoglycemic agents. He has been started on Lantus here that had to be titrated down due to episodes of nocturnal hypoglycemia. Regarding his traumatic brain injury, he had a CIAIO COUNTER MOLDER shunt placed back in 2008. Apparently revision was done a few years later. He has been followed by Dr. Knox while inpatient, he has compared his recent CAT scan to previous one back in 2008 and at this point no revision is needed according to Dr. Knox, maybe in a few years he may need something done but currently given all the other concomitant diagnosis, patient does not need another surgical intervention. He will be discharged to assisted facility today for physical therapy, insulin regimen titration, further monitoring. Of note in addition of the medication listed below at discharge, patient had couple of modification, carvedilol is increased to 12.5 mg p.o. twice daily, Norvasc is added at 5 mg p.o. twice daily for blood pressure control. He has been started on Keppra 500 mg p.o. twice daily and Lantus has been decreased to 12 units subcutaneously nightly with pre-meal insulin at aspart 4 units q. before meals and mild sliding scale insulin. For now, his metformin has been discontinued since his p.o. intake was not optimal. Home Meds Active Scripts Acetaminophen with Codeine (Acetaminophen-Cod #3 Tablet) 1 Each Tablet, 1 TAB PO Q6H Y for PAIN, #12 TAB Prov:PADMINI SHORE MD 05/12/17 Reported Medications Aspirin* (Aspirin* EC) 81 Mg Tablet., 81 MG PO DAILY 08/30/12 Amlodipine Besylate* (Norvasc*) 5 Mg Tablet, 5 MG PO DAILY 08/30/12 Carvedilol (Coreg) 6.25 Mg Tablet, 6.25 MG PO BID 08/30/12 Benazepril Hcl* (Lotensin*) 20 Mg Tablet, 20 MG PO BID 08/30/12 Gemfibrozil* (Lopid*) 600 Mg Tablet, 600 MG PO BID 08/30/12 Diclofenac Sodium* (Voltaren*) 75 Mg Tablet., 75 MG PO BID 08/30/12 Acetaminophen (Tylenol) 500 Mg Tab 03/12/11 Ibuprofen (Advil) 200 Mg Tablet 03/12/11 Gabapentin* (Gabapentin*) 100 Mg Capsule, 800 MG PO TID, 0 Refills 03/12/11 Insulin Glargine,Hum.rec.anlog (Lantus) 100 U/Ml Vial 03/12/11 Metformin Hcl* (Metformin Hcl*) 1,000 Mg Tablet, 1000 MG PE PO TID, 0 Refills 03/12/11 Follow-up Plan Follow-up with neurology as an outpatient regarding seizure disorder, chronic encephalopathic, status post traumatic brain injury. Follow up with neurosurgery, Dr. Knox, in the next 1-3 months, regarding CIAIO COUNTER MOLDER shunt care and follow-up. Follow-up with primary care physician at discharge from assisted facility , regarding diabetes mellitus and hypertension Primary Care Provider Kun Gonzalez MD Time spent on discharge: > 30 minutes Pending Labs Laboratory Tests Test 05/27/17 17:45 05/27/17 21:04 05/28/17 02:34 05/28/17 05:25 Bedside Glucose 173mg/dL (70-220) 195mg/dL (70-220) 96mg/dL (70-220) White Blood Count 9.410^3/ul (4.8-10.8) Red Blood Count 2.7610^6/ul (4.70-6.10) Hemoglobin 8.6g/dl (14.0-18.0) Hematocrit 24.7% (42.0-52.0) Mean Corpuscular Volume 89.5fl (82.0-101.0) Mean Corpuscular Hemoglobin 31.2pg (29.0-33.0) Mean Corpuscular Hemoglobin Concent 34.8g/dl (32.0-37.0) Red Cell Distribution Width 13.2% (11.5-14.5) Platelet Count 57260^3/UL (140-415) Mean Platelet Volume 9.7fl (7.4-10.4) Neutrophils % 70.6% (39.0-77.0) Lymphocytes % 19.3% (15.0-51.0) Monocytes % 8.2% (0.0-11.0) Eosinophils % 1.1% (0.0-7.0) Basophils % 0.3% (0.0-2.0) Nucleated Red Blood Cells % 0.0/100WBC (0.0-0.0) Neutrophils # (Manual) 6.610^3/ul (1.7-7.5) Lymphocytes # 1.810^3/ul (0.8-2.9) Monocytes # 0.810^3/ul (0.3-0.9) Eosinophils # 0.110^3/ul (0.0-0.5) Basophils # 0.010^3/ul (0.0-0.1) Nucleated Red Blood Cells # 0.010^3/ul (0.0-0.0) Sodium Level 137mmol/L (135-144) Potassium Level 3.2mmol/L (3.5-5.1) Chloride Level 114mmol/L (97-110) Carbon Dioxide Level 20mmol/L (21-31) Anion Gap 6 (8-16) Blood Urea Nitrogen 20mg/dl (7-20) Creatinine 1.18mg/dl (0.61-1.24) Glucose Level 71mg/dl (70-220) Calcium Level 8.5mg/dl (8.4-10.2) Phosphorus Level 4.0mg/dl (2.5-4.9) Magnesium Level 2.2mg/dl (1.7-2.5) Test 05/28/17 08:13 05/28/17 08:37 05/28/17 08:56 05/28/17 09:44 Bedside Glucose 49mg/dL (70-220) 81mg/dL (70-220) 113mg/dL (70-220) Glucose Level 112mg/dl (70-220) Test 05/28/17 12:05 Bedside Glucose 187mg/dL (70-220) AUGUST ADAN May 28, 2017 16:49
[2017-05-28] MEDS ORDERED: INSULIN GLARGINE [LANtus] 3 ML PEN SC SCH (21:00)
== END 2017-05-28 17:40 | DRG 100 ==
LOC: E/R 00:49 → MS2 04:52 → INTOOBSV 04:52 → MS2 10:15 → OBSVTOIN 05-19 15:42
PROVIDERS: ADMIT Internal Medicine; ATTEND Internal Medicine
PROC: 009U3ZX Drainage of Spinal Canal, Percutaneous Approach, Diagnostic (ICD-10-PCS; principal; 2017-05-21)
PROC: B01B1ZZ Fluoroscopy of Spinal Cord using Low Osmolar Contrast (ICD-10-PCS; 2017-05-21)
DX: R56.9 Unspecified convulsions (principal); G93.49 Other encephalopathy; G91.1 Obstructive hydrocephalus; R65.10 Systemic inflammatory response syndrome (SIRS) of non-infectious origin without acute organ dysfunction; R47.01 Aphasia; E11.649 Type 2 diabetes mellitus with hypoglycemia without coma; Z98.2 Presence of cerebrospinal fluid drainage device; Z87.820 Personal history of traumatic brain injury; I10 Essential (primary) hypertension; R33.9 Retention of urine, unspecified; Z91.81 History of falling; R26.0 Ataxic gait; R14.0 Abdominal distension (gaseous); R40.4 Transient alteration of awareness
CPT/HCPCS: 36415; 70250; 70450; 71010; 74176; 80048; 80053; 80202; 81001; 82550; 82553; 82945; 82947; 82962; 83036; 83605; 83735; 84100; 84145; 84157; 84443; 84484; 85014; 85018; 85025; 85610; 85651; 85730; 86592; 87040; 87070; 87086; 87102; 87529; 89051; 93005; 95819; 96365; 96366; 96375; 97162; 97530; G0378; J0360; J0692; J1650; J1815; J2543; J2930; J3370; J3475; J3480; J7030; J7050

== ENCOUNTER 2017-11-14 23:48 | Inpatient (IN) | END 2017-11-18 19:39 | disposition home health service (06) | DRG 304 ==